=== PATIENT | male | born 1965 | race Caucasian/White ===

== ENCOUNTER 2018-06-16 12:39 | Emergency (ER) | payer MEDICAID, SELFPAY ==
[2018-06-16 12:45] VITALS: BP 137/99; PULSE 69; RESP 16; TEMP 36.8; O2SAT 95
--- NOTE | 2018-06-16 14:10 | ED.GENADUL_ITS ---
Disposition Clinical Impression: Laceration of foot Disposition: HOME Condition: Good Instructions: Laceration (ED), Care For Your Stitches (ED) Additional Instructions: Watch for any signs of infection such as purulent drainage, redness around the surgical site, significant swelling, streaking redness up the foot. If these occur return immediately to the emergency department for evaluation. Otherwise return to the emergency department in 12 days for suture removal. Keep wound clean and dry. Make sure that you take the antibiotics until fully gone. Prescriptions: Cephalexin [Keflex] 500 mg PO Q6H #16 cap Referrals: [facility] Emergency Dept. [Outside] (Return to the emergency department 12 days for suture removal.) Medical Decision Making - Medical Decision Making Patient presenting to the emergency department for complaint of left foot laceration. Patient had this laceration from a chainsaw. Patient has a 4 cm laceration to the medial aspect of the dorsal side of the left foot. Patient gave verbal consent for anesthetization and wound closure. Please see wound note for closure. Wound is a deep wound with possible fascia involvement but no tendon deficit is noted no visible bone. Did encourage patient to have radiological imaging of the foot done due to mechanism of injury and to evaluate for any bone loss and he declined this. Patient is competent and states clear understanding of risks versus benefit of radiological imaging of the foot. Visualization of wound to base in bloodless field does show some contamination with what appears to be sock-like material and potential dirt all visible foreign bodies were removed. Wound was closed with 3 simple interrupted sutures and due to some brisk venous bleeding 1 figure 8 stitch was used. Wound was then covered with bacitracin and sterile gauze. Given contaminated wound patient was placed upon Keflex for 4 days and encouraged to watch for any signs of infection return immediately. Patient's tetanus is past 5 years so patient was given Tdap immunization. After discussion of diagnosis and plan of care with patient patient agreed and stated no further needs, questions, or concerns at this time. History of Present Illness - General Chief complaint: Laceration Stated complaint: LEFT RIGHT FOOT LACERATION Time Seen by Provider: 06/16/18 12:48 Source: patient, RN notes reviewed Mode of arrival: ambulatory Limitations: no limitations - History of Present Illness Initial comments: Patient reports approximately an hour or so prior to arrival he was in the matt using his chainsaw when he struck a knot in the tree and the chainsaw kicked back striking him in the left inner foot. He states he was wearing a work boot and it cut through the work boot then when he evaluated his sock he noticed some blood. Patient denies any other injury or trauma and states full movement sensation and function around the injury just a decent laceration. Patient states he is unsure of his last tetanus. Onset/Timin -: hour(s) Location: left, lower extremity Severity scale (1-10): 1 Quality: aching Improves with: none Worsens with: none Associated Symptoms: denies other symptoms Treatments Prior to Arrival: none - Related Data Cephalexin [Keflex] 500 mg PO Q6H #16 cap 06/16/18 Allergies Allergy/AdvReac Type Severity Reaction Status Date / Time No Known Allergies Allergy Unverified 06/16/18 12:49 Review of Systems Constitutional: no symptoms reported Cardiovascular: denies: syncope Musculoskeletal: as per HPI Skin: as per HPI Neurological: denies: weakness, numbness, paresthesias Comment: All other systems reviewed and negative Past Medical History - Past Medical History Medical history: no medical history Surgical history: no surgical history - Social History Smoking status: current everyday smoker Alcohol use: occasionally Drug use: none Living Situation: lives with family General Exam - General Limitations: no limitations General appearance: alert, in no apparent distress - Head Head exam: Present: atraumatic - Respiratory Respiratory exam: Absent: respiratory distress - Cardiovascular Cardiovascular Exam: Present: regular rate, normal rhythm - Expanded Lower Extremity Exam Left Lower Leg exam: Present: normal inspection Ankle exam: Present: normal inspection Foot/Toe exam: Present: full ROM, laceration (Patient has a 4 cm laceration to the medial aspect of the foot on the dorsal side.). Absent: tenderness, deformity, crepidus Neuro vascular tendon exam: Absent: pulse deficit, motor deficit, sensory deficit, tendon deficit, abnormal 2-point discrimination Gait: observed and normal - Neurological Exam Neurological exam: Present: alert, oriented X3 - Psychiatric Psychiatric exam: Present: normal affect, normal mood - Skin Skin exam: Present: warm, dry Course Vital Signs - 24 hr 06/16/18 12:45 Temperature 36.8 C Pulse 69 Respiratory 16 Rate Blood Pressure 137/99 Pulse Oximetry 95 Procedures - Laceration Repair Consent Obtained: Verbal consent Copious Irrigation performed: Yes Laceration Length (cm): 4 Laceration Depth: Deep Bleeding Type/Amount: Moderate Complexity: Simple Anesthetic: Local, Lidocaine 1%, With Epi Amount of Anesthetic (mls): 6 Material: Proline Suture Size: 3-0 Suture Number: 4 (3 simple interrupted, 1 [id number])
[2018-06-16] MEDS: Cephalexin 500 MG CAP PO (14:26)
[2018-06-16 14:28] VITALS: BP 137/99; PULSE 69; RESP 16; TEMP 36.8; O2SAT 95
--- NOTE | 2018-06-16 14:39 | NUR.NOTE ---
discussed rationale for foot xray and risk for osteomyelitis- pt states that he understands but does not wish to have xray- notified Priyank Maxwell.P. Nursing Note:
== END 2018-06-16 14:28 | disposition home or self-care (01) ==
PROVIDERS: Emergency Provider Physician Assistant; PCP Nurse Practitioner
DX: S91.312A Laceration without foreign body, left foot, initial encounter (principal); W29.3XXA Contact with powered garden and outdoor hand tools and machinery, initial encounter
CPT/HCPCS: 90471; 99284

== ENCOUNTER 2019-08-20 02:16 | Outpatient (CLI) | payer MEDICAID, SELFPAY ==
--- NOTE | 2019-08-20 15:23 | DI.MRI_ITS ---
EXAM: MR LOWER JOINT RT WO CLINICAL HISTORY: ACUTE KNEE PAIN M25.561, POSSIBLE ACL TEAR, NOT ABLE TO BEAR WEIGHT. TECHNIQUE: Multiplanar multisequence MRI was performed. COMPARISON: No exams were available for comparison FINDINGS: There is a moderate-sized joint effusion and small Hernandez's cyst. There is minimal edema in the ant erior cruciate ligament but no evidence of a full-thickness tear. The posterior cruciate ligament an d lateral collateral ligament complex as well as extensor mechanism appear intact. There is mild lisa ma anterior to the patellar tendon with no focal fluid collection. There is fluid around the medial collateral ligament, but no evidence of a focal tear. There is some cartilage thinning and irregular ity over the femoral condyles and tibial plateaus, but no focal cartilage defect. There is no eviden ce of fracture. There is mild spurring from the femoral condyles and tibial plateaus. The menisci a re mildly peripherally displaced, consistent degenerative changes. There are degenerative intrasubst ance signal changes, but no evidence of a focal tear. IMPRESSION: Question of MCL and ACL sprains. No focal tears are seen. Degenerative changes are seen in the meni sci as well as articular cartilage.
== END 2019-08-20 02:36 ==
PROVIDERS: PCP Nurse Practitioner; Visit Provider Nurse Practitioner
DX: M25.561 Pain in right knee (principal); M17.11 Unilateral primary osteoarthritis, right knee; M25.461 Effusion, right knee; M71.21 Synovial cyst of popliteal space [Baker], right knee
CPT/HCPCS: 73721

== ENCOUNTER 2019-12-29 09:47 | Day surgery (SDC) | payer MEDICAID, SELFPAY ==
[2019-12-29] VITALS (8 sets, daily range): BP systolic 123–158; BP diastolic 95–113; PULSE 53–69; RESP 12–18; TEMP 36.4–36.7; O2SAT 94–97
--- NOTE | 2019-12-29 07:33 | W.PM.DSUDISC ---
Discharge Plan Disposition Patient Disposition: HOME Condition: Good Discharge Details Reason For Visit: Right knee arthroscopy Attending Provider: Orestes Portillo Primary Care Provider: Alta Barreto Home Meds and New Rx's Prescriptions: New hydrocodone-acetaminophen 5-325 mg tablet 1 tab PO Q6H PRN (Reason: pain) Qty: 10 RF: 0 ibuprofen 600 mg tablet 600 mg PO TID PRNQty: 30 RF: 0 acetaminophen 500 mg capsule 500 mg PO Q4H PRN (Reason: pain) Qty: 30 RF: 0 Discharge Instructions Stand Alone Forms: [facility] Knee Arthroscopy Referrals: Orestes Portillo MD [ [facility] STAFF PHYSICIAN] - Equipment/Supplies: Partial Weight Bearing Crutches Activity:: Activity as Tolerated Remove Dressings/Wound Care:: 48 hours Shower/Bathe:: 48 hours Diet:: As Tolerated Discharge Orders Discharge Orders: Discharge Order (Routine); Ordered 12/29/19 Ordered By: Tramaine Patel DS: Diagnosis Discharge Diagnosis (1) Internal derangement of right knee: Status: Acute
[2019-12-29] MEDS: Lactated Ringers 1,000 ML 80 ML IV ×2 (10:42→12:45)
[2019-12-29] MEDS: ceFAZolin 2 GM/50 ML BAG IVPB (12:10)
[2019-12-29] MEDS: EPINEPHrine 30 MG/30 ML VIAL (12:44)
[2019-12-29] MEDS: Bupivacaine 0.5% Pres-Free 30 ML VIAL (12:48)
[2019-12-29] MEDS: fentaNYL 100 MCG/2 ML VIAL IVP (13:25)
[2019-12-29] MEDS: Ondansetron 4 MG/2 ML VIAL IVP (14:02)
--- NOTE | 2019-12-30 14:54 | W.PM.OP ---
Date of service: 12/29/19 Time of Service: 12:54 Operative Note Operative Note DATE OF PROCEDURE: 12/29/19 POST-OP DIAGNOSIS: other (Right middle meniscus tear, grade 4 medial chondromalacia, anterior loose body) PROCEDURE: Right knee arthroscopic partial medial meniscectomy and removal of loose body SURGEON: Orestes Portillo ANESTHESIA: GETA ESTIMATED BLOOD LOSS: 0 PATHOLOGY: none sent COMPLICATIONS: None Patient was transported to: PACU Patient's condition: stable Indications: I have seen Jai in clinic for symptoms of a meniscus tear. This was confirmed based on MRI and exam findings. Nonoperative measures were exhausted but disability and pain persisted. I discussed knee arthroscopy with meniscal intervention with the patient. I reviewed the risks of the procedure to include, but not limited to, bleeding, infection, pain, stiffness, damage to nerves or vessels, recurrence, blood clot. Despite these risks, the patient elected to proceed. Findings: A diagnostic arthroscopy was performed with the following findings: Suprapatellar Pouch: No significant inflammation, no loose bodies Medial Compartment: Radial tear at the level of the posterior root with no intact peripheral fibers, more than half of the medial and posterior tibia was grade IV chondromalacia and the femur was mostly grade III chondromalacia with focal areas of grade 4, no loose bodies in the medial compartment Notch: ACL and PCL were intact but there was a loose body lightly attached to the anterior aspect of the notch between the ACL and the medial meniscus anterior root. Lateral Compartment: No meniscal tear, intact meniscal root, no significant chondromalacia or signs of arthritis, no loose bodies Patellofemoral Compartment: Grade I/II chondromalacia of the patella, no apparent patellar maltracking Procedure Description: Jai was greeted in the preoperative holding area where the correct side was identified and marked. The consent was reviewed with the patient and signed. The history and physical was updated. All questions were answered. He was taken back to the operating room. The patient was placed into the supine position on the operating room table. A nonsterile tourniquet was placed high onto the leg but not used. All bony prominences were well padded. Prophylactic antibiotics in the form of cefazolin were administered. The right leg was then prepped with Chloraprep and draped in a standard fashion with stockinette and extremity drape. A timeout to confirm correct identity, side and site, procedure, allergies, anesthesia, and medical concerns was performed. The leg was placed into a pneumatic leg meade, SPIDER2. A standard lateral portal was made at the lateral border of the patella tendon in line with the inferior pole of the patella, soft spot. The skin and deep tissue was incised sharply and the blunt trochar was inserted atraumatically. A diagnostic arthroscopy was performed and the findings are listed above. The suprapatellar pouch had no significant inflammatory change. The patellofemoral articulation showed minimal grade II chondromalacia of the patella as well as good tracking. The lateral gutter had no loose bodies and the medial gutter had no loose bodies. The knee was brought into some valgus stress in extension to open the medial compartment. A medial portal was made, localized by a spinal needle. The portal was created with an #11 blade through skin and capsule under direct visualization avoiding any meniscal injury. A probe was then inserted into the medial compartment. The medial compartment was fully inspected. The chondral surface of the tibia showed a large amount of grade IV chondromalacia, especially medial and posterior. The surface of the femur showed grade III chondromalacia with focal areas of grade 4. The medial meniscus had a radial type tear at the level of the meniscal root, disconnecting the posterior meniscus from the tibial attachment. After evaluation, the meniscus was debrided down to a stable base using a series of biters and arthroscopic karthik. It was probed afterwards to confirm that the tear had been removed and the meniscus was stable. This partial meniscectomy was performed given the large amounts of grade 3 grade IV chondromalacia of the medial compartment. The notch was then inspected which showed an intact ACL and an intact PCL. There was a round loose body approximately 5 mm in diameter which was seen lightly attached to the anterior soft tissues between the ACL origin and the medial meniscus. Using arthroscopic graspers, this was removed. The leg was then brought into a figure of 4 position. The lateral compartment was fully inspected with the arthroscope and a probe. The chondral surface of the lateral femur showed no significant chondromalacia. The chondral surface of the lateral tibia showed no significant chondromalacia. The lateral meniscus had no meniscal tear. The arthroscope was brought back into the suprapatellar pouch and the leg was in full extension. The knee was thoroughly irrigated with the arthroscopic fluid on high flow and pressure. Inflow was stopped and excess fluid was removed. The wounds were closed with 4-0 Nylon. They were dressed with Xeroform, 4x4 gauze, ABD pad, Kerlix and an CASSY wrap. A cryo-cuff was applied. The patient tolerated the procedure well and was returned to the Same Day Surgery area in a stable condition suffering no known complication.
== END 2019-12-29 15:22 | disposition home or self-care (01) ==
LOC: SUR 09:48
PROVIDERS: PCP Nurse Practitioner; Visit Provider Student in an Organized Health Care Education/Training Program
PROC: (CPT 29870; principal; 2019-12-29 12:15)
DX: M23.203 Derangement of unspecified medial meniscus due to old tear or injury, right knee (principal); M22.41 Chondromalacia patellae, right knee; M94.261 Chondromalacia, right knee
CPT/HCPCS: 29881; J0131; J0690; J1100; J1200; J1885; J2001; J2250; J2405; J3010

== ENCOUNTER 2020-09-20 15:05 | Outpatient (CLI) | payer MEDICAID, SELFPAY ==
--- NOTE | 2020-09-20 13:45 | DI.RAD_ITS ---
EXAM: XR STANDING ALIGNMENT and XR knee RT 1 V CLINICAL HISTORY: R TKA planning. TECHNIQUE: 2D digital imaging was performed. COMPARISON: None. FINDINGS: Moderately severe degenerative changes are seen in the right knee characterized by joint space narrow ing and periarticular spurring. The findings are most marked in the medial femoral tibial and patell ofemoral joints. Mild degenerative changes are seen in the left knee with periarticular spurring in the lateral femoral tibial joint space. The hips are well maintained. The ankles are well maintaine d. There is a nonunited fracture of the distal left fibula. The right lower extremity measures 85.2 cm. The left lower extremity measures 86.7 cm. IMPRESSION: Moderately severe degenerative changes in the right knee as described. DATA REPOSITORY: RADIATION DOSE DELIVERED:
== END 2020-09-20 15:25 ==
PROVIDERS: PCP Nurse Practitioner; Referring Provider Nurse Practitioner; Visit Provider Physician Assistant
DX: M17.11 Unilateral primary osteoarthritis, right knee (principal)
CPT/HCPCS: 73560; 77073

== ENCOUNTER 2020-09-29 02:49 | Outpatient (CLI) | payer MEDICAID, SELFPAY ==
[2020-09-29 11:27] LABS: HCT 45.4 % (40.0-50.0); HGB 15.7 g/dL (13.5-17.5); MCH 30.3 pg (27.0-33.0); MCHC 34.6 % (32.0-36.0); MCV 87.6 fL (80-95); MPV 8.9 fL (8.0-11.0); Platelet Count 258 10^3/uL (130-400); RBC 5.18 10^6/uL (4.36-5.78); RDW 11.8 % (11.8-14.1); WBC 6.73 10^3/uL (4.4-10.8)
[2020-09-29 11:52] LABS: BUN 14 mg/dL (7-18); CREATININE 0.88 mg/dL (0.70-1.30); Calcium 9.4 mg/dL (8.5-10.1); Chloride 104 mmol/L (98-107); Glucose 96 mg/dL (74-106); Potassium 4.6 mmol/L (3.5-5.1); Sodium 139 mmol/L (136-145)
[2020-09-30 11:56] LABS: SARS-CoV-2 RNA Not Detected (NotDetected); SARS-CoV-2 RNA Source Nasal/Nares
== END 2020-09-29 03:09 ==
PROVIDERS: PCP Nurse Practitioner; Visit Provider Student in an Organized Health Care Education/Training Program
DX: Z01.818 Encounter for other preprocedural examination (principal); M23.203 Derangement of unspecified medial meniscus due to old tear or injury, right knee
CPT/HCPCS: 36415; 80048; 85027; U0003

== ENCOUNTER 2020-10-03 07:15 | Day surgery (SDC) | payer MEDICAID, SELFPAY ==
[2020-10-03] VITALS (7 sets, daily range): BP systolic 106–143; BP diastolic 77–91; PULSE 47–65; RESP 15–20; TEMP 36–36.5; O2SAT 94–98
[2020-10-03] MEDS: Acetaminophen 500 MG TAB 1000 MG PO (07:52)
[2020-10-03] MEDS: Gabapentin 300 MG CAP PO (07:53)
[2020-10-03] MEDS: Celecoxib 200 MG CAP 400 MG PO (07:53)
[2020-10-03] MEDS: Lactated Ringers 1,000 ML 80 ML IV ×2 (08:00→09:49)
[2020-10-03] MEDS: ceFAZolin 2 GM/50 ML BAG IVPB (09:12)
[2020-10-03] MEDS: Normal Saline 20 ML VIAL (09:34)
[2020-10-03] MEDS: Ketorolac 30 MG/ML VIAL (09:34)
[2020-10-03] MEDS: Bupivacaine 0.25% Pres-Free 30 ML VIAL (09:34)
--- NOTE | 2020-10-03 10:34 | W.PM.DS.N ---
Date of service: 10/03/20 Time of Service: 12:42 DS: Diagnosis Discharge Diagnosis (1) Primary osteoarthritis of right knee: Status: Acute Discharge Plan Disposition Patient Disposition: HOME Condition: Good Discharge Details Reason For Visit: Right Knee DJD Admit Date/Time: 10/03/20 07:15 Admit Provider: Orestes Portillo Attending Provider: Orestes Portillo Primary Care Provider: Alta Barreto Hospital Course Hospital Course: Patient was admitted to the day surgery unit following the procedure. The surgery was tolerated well without any notable medical, surgical, or anesthetic complications. Mobilization began postoperatively. He was voiding spontaneously. Vitals were stable. Physical therapy worked with the patient and was cleared for discharge home. No acute medical issues. Pain was controlled on oral regimen. Home Meds and New Rx's Prescriptions: New aspirin 81 mg tablet,delayed release (DR/EC) 81 mg PO BID Qty: 60 RF: 0 acetaminophen 500 mg tablet 1,000 mg PO Q8H PRN (Reason: pain) Qty: 90 RF: 3 pantoprazole 40 mg tablet,delayed release (DR/EC) 40 mg PO DAILY Qty: 30 RF: 0 docusate sodium [Colace] 100 mg capsule 100 mg PO BID PRNQty: 10 RF: 0 gabapentin 300 mg capsule 300 mg PO QHS Qty: 7 RF: 0 ibuprofen 600 mg tablet 600 mg PO QID Qty: 90 RF: 3 oxycodone 5 mg tablet 5 mg PO Q4H Qty: 18 RF: 0 Discontinued ibuprofen 600 mg tablet 600 mg PO TID PRN (Reason: pain) Qty: 90 RF: 3 acetaminophen 500 mg capsule 500 mg PO Q4H PRN (Reason: pain) Qty: 30 RF: 0 Discharge Instructions Additional Instructions: Total Knee Discharge Instructions Activity: The most important activity is to walk. You should try to take short walks a few times a day. It is important that when resting you work on keeping the knee straight. Avoid putting a pillow behind the knee as this will encourage flexion. Work on range of motion exercises as provided by Physical Therapy. - Start outpatient physical therapy within 2 weeks. - You should wear the DEX hose on both legs for 2 weeks. Dressing: Keep the surgical dressing in place for at least one week. After the first week it may be removed and replace with light gauze and tape or nothing. It may get wet after 3 days but avoid soaking the dressing. If it gets wet, just lightly pat dry. Medications: - You should take Tylenol and anti-inflammatory Ibuprofen as your primary pain control medications. If the Celebrex is too expensive or not covered, please call the office for another alternative (Advil/Ibuprofen or Naproxen/Aleve) - You have been prescribed a stronger pain medication Oxycodone for breakthrough pain, take as needed as prescribed. - You have also been prescribed a stomach acid reduction agent Pantoprozole to help reduce stomach acid and reflux. - You have Gabapentin prescribed for nighttime pain and nerve pain. - You will be taking Aspirin 81mg twice a day for DVT prevention unless instructed otherwise. - If you have constipation you should take Colace or Miralax (both [id number]). It takes most people 3-4 days to have a bowel movement. Follow-up: 2 weeks If you have any acute concerns or questions, please do not hesitate to contact the office at [phone]. You may contact Dr. Portillo with any questions after hours through the hospital at [phone] or on his cell phone at [phone]. Referrals: Orestes Portillo MD [ [facility] STAFF PHYSICIAN] - Activity:: Activity as Tolerated Equipment/Supplies:: Crutches Diet:: As Tolerated Discharge Orders Discharge Orders: Discharge Order (Routine); Ordered 10/03/20 Ordered By: Orestes Portillo DS: Summary Status at Discharge Functional status at discharge: uses cane/walker Overall status at discharge: patient is progressing back to baseline Mental Status: mental status grossly normal Speech and Movement: speech and movement normal Mood: congruent mood Affect: normal affect Exam Psych Mental Status: mental status grossly normal Speech and Movement: speech and movement normal Mood: congruent mood Affect: normal affect DS: Data Vitals/I&O Vitals and I&O: Vital Signs Temperature 36.5 C 10/03/20 07:25 Pulse 53 L 10/03/20 07:25 Pulse Rhythm Regular 10/03/20 07:25 Respiratory Rate 18 10/03/20 07:25 Respiratory Depth Normal 10/03/20 07:25 Blood Pressure 124/80 10/03/20 07:25 Pulse Oximetry 94 10/03/20 07:25 Oxygen Delivery Method Room Air 10/03/20 07:25 Oxygen Flow Rate 0 10/03/20 07:25 Pain Level 5 10/03/20 07:25 Intake & Output 10/02/20 10/02/20 10/03/20 11:59 23:59 11:59 Intake Total 1110 / 1110 Balance 1110 / 1110 Weight 77.9 kg Intake: IV 1110 / 1110 PFS Medical History Tear of medial meniscus of right knee Surgical History Colonoscopy - [facility] (02/02/18) Internal derangement of right knee S/P Right knee arthroscopy: 12/29/2019 Social History Smoking/Tobacco Use Status: Former Tobacco Use Tobacco: How many years used: 46 Smoking risk assessment performed?: Yes Alcohol Intake: current Alcohol Intake frequency: 0-2 drinks per day Alcohol type: beer and hard liquor Drug use: Rarely Substance use type: marijuana Details: Pt states he quit chew 10/21, started when he was 7 years old!! Pt states he currently uses ZYN (natural nicotine) Current gender identity: male Do you feel safe at home: Yes Additional Social history: lives alone
--- NOTE | 2020-10-03 12:47 | W.PM.OP ---
Date of service: 10/03/20 Time of Service: 12:47 Operative Note Operative Note DATE OF PROCEDURE: 10/03/20 PRE-OP DIAGNOSIS: Right Knee Osteoarthritis POST-OP DIAGNOSIS: same PROCEDURE: Right Total Knee Replacement SURGEON: Orestes Portillo VICTIMS ADVOCATE CLERK/SPECIALIST: Justina Canales ANESTHESIA: regional and spinal ESTIMATED BLOOD LOSS: 200 PATHOLOGY: none sent TOURNIQUET TIME: 0 COMPLICATIONS: None Patient was transported to: PACU Patient's condition: stable Implants: 1. Depuy Attune Cementless Cruciate Retaining Femoral Component, Size 7 2. Depuy Attune Cementless Rotating Platform Tibial Component, Size 6 3. Depuy Attune 7x6mm CR/RP Poly 4. Depuy Attune Patellar Component, Size 35 Indications: I have seen Jai in clinic for symptoms of knee arthritis, confirmed with radiographic findings. He has exhausted nonoperative methods and was having significant limitations in daily function and desired better function and less pain. I discussed the technical details of a knee replacement. I explained the risks of the procedure to include, but not limited to, bleeding, infection, pain, stiffness, fracture, damage to nerves and vessels, damage to muscles and tendons, loosening, need for repeat procedure, blood clot and cardiopulmonary demise. Despite these risks, Jai elected to proceed. Findings: There was significant signs of arthritis throughout the knee. Procedure Description: Jai was greeted in the preoperative holding area where the correct side was identified and marked. The consent was reviewed with the patient and signed. The history and physical was updated. All questions were answered. Preoperative medications were administered: Acetaminophen 1000mg, Celebrex 400mg, and Gabapentin 300mg. An adductor canal block was then administered by the anesthesia team in the PACU. Jai was taken back to the operating room. A spinal anesthestic was then administered. The patient was placed into the supine position on the operating room table. A nonsterile tourniquet was placed high onto the leg but only used for cementing. Posts were placed for positioning during the procedure. All bony prominences were well padded. Prophylactic antibiotics in the form of Cefazolin were administered. 1g of Tranxemic Acid was given intravenously within 30 minutes of incision. The right leg was then prepped with Chloraprep and draped in a standard fashion with impervious stockinette. A second prep with Chloraprep was performed prior to application of Iodine impregnated skin protection. A timeout to confirm correct identity, side and site, procedure, allergies, anesthesia, and medical concerns was performed. With the knee in some flexion, a midline incision was made overlying the knee. Full thickness skin flaps were raised once the extensor mechanism was encountered. These were raised medially and laterally. Any bleeding was controlled with electrocautery. Once the extensor mechanism was fully exposed, a medial parapatellar arthrotomy was performed in a flexed position. All bleeding from the arthrotomy and the geniculate arteries was coagulated. A medial subperiosteal peel was performed with electrocautery to the midcoronal plane. Due to the significant varus deformity the entire medial tibial plateau was exposed. The fat pad was removed while keeping the patellar tendon protected. The anterior distal femur synovium was removed for later visualization. The ACL and PCL were resected and the anterior horn of the lateral meniscus was transected. The knee was then flexed with the patella everted. Large osteophytes from the tibia were removed. Large osteophytes from the femur were removed. Using a step drill, and based on preoperative templating, the femoral canal was entered. This was done with a step drill without any difficulty. The intramedullary distal femoral cut guide was inserted, set to a 5 degree valgus cut and 9mm cut thickness. The distal femoral cut guide was then held in position and pinned. With the soft tissues protected, the distal cut was performed. This was passed over a few times to ensure a planar cut. I then turned attention to the tibia. The extramedullary guide was placed onto the leg. The distal aspect was slid medial to adjust for position of center of ankle and stay in line with shaft of the tibia. Approximately 5 degrees of posterior slope was kept in the proximal cutting guide. The center of the guide was aligned with the PCL. The stylus was used to assess cut thickness. The medial side, most involved side, was set for a 4mm cut. This was then held in position and pinned into place with 2 additional pins and a cross pin for stability. The medial and lateral collateral ligaments were protected and the cut was performed. With this completed, it was assessed and noted to be of appropriate dimensions. The guide was removed. A spacer block was inserted and the knee was brought into extension. The 6mm spacer block provided full extension, without hyperextension and with stability of both the medial and lateral collateral ligaments was assessed. The pins from the femur and the tibia were then removed. The distal femur was then sized. The anterior stylus was placed onto the lateral ridge of the anterior femur. This indicated a size 7 femur, which matched the A-P dimension but was slightly wide for the distal femur. The external rotation of the guide was adjusted to 3 degrees to match the epicondylar axis, perpendicular to [place]?s line. The 4-in-1 cutting guide was the placed. The posterior medial femur cut was evaluated and appeared of good thickness. The spacer block was inserted underneath the cutting guide and stability was confirmed in 90 degrees of flexion. An james wing was used to confirm appropriate position of the anterior cut to avoid notching. This cutting guide was ensured to be flush on the cut surface and then pinned into place with headed pins. While protecting the soft tissues, quad tendon, and collateral ligaments, the anterior and posterior cuts were performed with a saw. The central two pins were removed and the posterior and anterior chamfers were cut next. The notch-cutting guide was placed. This was pinned to lateralize the femoral component as much as possible while keeping it flush on the cut surface. This was then pinned into position. A reciprocating saw was used to make the notch cut. A rasp smoothed the cut surfaces. The medial and lateral menisci were removed. A trial femoral component was then inserted, impacted down to the cut surfaces, and the lug holes were drilled. A provisional trial tibial component was placed and the knee was brought through range of motion. There was noted to be excellent extension and flexion. There was no significant instability. The polyethylene was trialed until there was good flexion and extension with excellent stability to the medial and lateral collaterals. The patella was tracking without thumbs. A size 6mm polyethylene component provided the best range of motion and stability with less than 2mm gapping with medial and lateral stress and full extension without significant hyperextension. The tibial cut surface was fully exposed. The tibia was then sized as a 6. The tibia had been previously marked during trialing to correspond to the center of the tibial component to help with rotation. The trial was aligned to this beni, approximately rotated to the medial 1/3rd of the tibial tubercle. The trial was pinned into place. The tibia was prepared with a reamer and a keel punch and lug holes. The knee was then brought into extension and the patella was measured as 24mm. Using the patellar clamp and cut guide, this was resected to a flat surface with at least 13mm of thickness remaining. The size 35 patella fit the best. This was oriented and then clamped into position. The lugs were drilled. The trial components were removed. The final components were opened on the back table. The periosteal and capsular tissues, especially posteriorly, around the knee were then systematically injected with a periarticular cocktail consisting of 50cc 0.25% Marcaine, 30mg Ketorolac, 20cc of Exparal and 50cc of injectable saline. The knee was thoroughly irrigated with a pulse lavage and dried. Irrisept was also used to irrigate the tissues. On the back table, with the implants opened, the cement was mixed. One batche of high viscosity cement were prepared with vacuum assistance. After the cement was ready a small amount was placed on the cut surface of the patella and the patellar button was clamped into position and held. During this process attention was turned to the gutters of the knee and for all interfaces for any excess cement. While the cement was hardening, the cementless knee components were placed. Starting with the tibial component, the tibia was subluxed anteriorly and the lug holes of the component were lined up. The tibia was then impacted with an impactor and mallet until the tibial component was in contact with the tibia. The final polyethylene component was inserted. Then, the femoral component was inserted. The lug holes were aligned and the component was impacted into position. The knee was irrigated with Irrisept chlorhexadine solution. This was allowed to sit in the knee for 3 minutes. After the cement had finally cured, approximately 15min, the clamp was removed from the patella and the knee was taken through range of motion. The patella was tracking with a no-thumbs technique. The capsule was then reapproximated with a No. 1 Vicryl at multiple locations. The capsule was finally closed with a No. 2 Stratafix, barbed suture. The tourniquet was then released and the arthrotomy appeared watertight without significant bleeding. The second dosing of 1g TXA was started. Deep tissues were then reapproximated with 0 Vicryl and 2-0 Vicryl. The skin was closed with a running 3-0 Monocryl in a subcuticular fashion. This was reinforced with skin glue. A Mepilex silver dressing was applied along with a [id number] CASSY wrap. A CryoCuff was applied. Jai was transferred to the hospital bed without difficulty an suffering no apparent complication. Jai has a good prognosis. Physical therapy will start today and without restrictions, weight-bearing as tolerated. Aspirin 81mg BID will be used for DVT prophylaxis.
--- NOTE | 2020-10-03 13:35 | IN_ITS ---
Date of service: 10/03/20 Time of Service: 13:35 PT Notes Visit Reasons: Right Knee DJD Physical Therapy Inpatient Initial Evaluation Date: 10/03/2020 Referring Doctor: Orestes Portillo MD PT Orders: PT CONSULT: Status post Ortho surgery. Status post right TKA. Precautions: Fall. Standard. WBAT on R LE. Patient Profile/Admitting Diagnosis: Jai is a 54-year-old male with primary unilateral osteoarthritis of the right knee and is status post right total knee arthroplasty operative day 0. PMHX: Medical History Tear of medial meniscus of right knee Surgical History Colonoscopy - MAC (02/02/18) Internal derangement of right knee S/P Right knee arthroscopy: 12/29/2019 Social History/Home Situation: Lives alone but will have needed support post- operstively. Has 2 steps to enter at home. 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 Independent with all aspects of ADLs prior to surgery. Equipment Owned/DME: Bilateral axillary crutches. Subjective: Cooperative and very motivated to go home today. Reports 1/10 pain in the R knee at rest. Denies headache, chest pain, lightheadedness throughout. Objective: General Observation: Supine in stretcher. IV in R UE. CASSY wraps to R knee. Cryocuff to R knee. Nurses Gaby and Ilda present during evaluation for safety a nd to assist as needed. Mental Status: Alert and oriented x 4 Pain: 1/10 in the right knee Vital Signs: WNL as closely monitored by Nurse Aydee and Ilda before, during, and after PT consult ROM: Right Upper Extremity: Shoulder Flexion WFL. Shoulder abduction WFL. Elbow flexion WFL. Wrist flexion WFL. Opening and closing of hand WFL. Left Upper Extremity: Shoulder Flexion WFL. Shoulder abduction WFL. Elbow flexion WFL. Wrist flexion WFL. Opening and closing of hand WFL. Right Lower Extremity: Hip flexion WFL. Hip abduction WFL. Knee flexion 20 to 80 degrees in standing. Knee extension -20 degrees. Ankle dorsiflexion WFL. Ankle plantarflexion WFL. Left Lower Extremity: Hip flexion WFL. Hip abduction WFL. Knee flexion WFL. Ankle dorsiflexion WFL. Ankle plantarflexion WFL. Strength: Right Upper Extremity: Shoulder flexors 5/5. Shoulder abductors 5/5. Elbow flexors 5/5. Elbow extensors 5/5. Behavioral Assistant strong. Left Upper Extremity: Shoulder flexors 5/5. Shoulder abductors 5/5. Elbow flex ors 5/5. Elbow extensors 5/5. Behavioral Assistant strong. Right Lower Extremity: Hip flexors 4/5. Hip abductors 4/5. Knee flexors 3-/5. Knee extensors 3-/5. Ankle dorsiflexors 5/5. Ankle plantarflexors 5/5. Left Lower Extremity:Hip flexors 5/5. Hip abductors 5/5. Knee flexors 5/5. Knee extensors 5/5. Ankle dorsiflexors 5/5. Ankle plantarflexors 5/5. Sensation: Intact as to pain and pressure on bilateral lower extremities. Bed Mobility/Transfers: Rolling independent Supine to sit independent Sit to supine independent Sit to stand supervision Stand to sit supervision Bed to chair supervision Chair to bed supervision Gait: Training provided to navigate 100 feet + 80 feet on level surface using bilateral axillary crutches with standby assist of PT and Nurse Griffin. Three- point gait pattern. Marian decreased. Step through. THERA EX: Instructed on seated level active range of motion exercises consisting of LAQs, seated hip flexion, and ankle DF/PF to bed done 10-15 x at least BID. Balance: Static Sitting: Normal Dynamic Sitting: Normal Static Standing: Good Dynamic Standing: Fair Special Tests: Mobility Limitations Standardized Measure [facility] AM-PAC 6 clicks Basic Mobility Inpatient Short Form: Raw Score: 23 CMS Score: 11% deficit Informed Consent/Education: Patient instructed in purpose of PT consult and plan of care. Assessment: Jai requires the use of bilateral axillary crutches to maximize independence and his fall risk at home. He will have good support to safely manage at home. He will benfit from outpatient PT services in order to fac ilitate return to premorbid independent level and to vocational activities. Patient presents with clinical signs and symptoms consistent with current/admitting diagnoses that have resulted to mobility limitations, gait instability, generalized weakness, and impairment of motor control as demonstrated by the following impairment level findings: 1. Decreased strength to R knee major muscle groups 2. Impaired standing balance 3. Impaired activity tolerance 4. Limitation of joint range of motion in right knee Impairments are contributing to the following functional limitations: 1. Inability to safely ambulate without assistive device 2. Increase completion time for mobility ADL performance 3. Increased fall risk Patient is assessed as a [id number] moderate complexity based on the following: History: 55-year-old male with impairment level findings, functional limitations, and past medical history as indicated above Examination: Demonstrable impairment in strength, balance, and mobility level with underlying impairments and functional limitations as documented above Presentation: Evolving Decision Makin moderate complexity Goals: N/A. PT consult and 1 treatment session only for education and training on functional mobility performance and HEP. Plan of Care/Treatment Plan: N/A. PT consult and 1 treatment session only for education and training on functional mobility performance and HEP. DISCHARGE RECOMMENDATIONS: Home when medically cleared by orthopedic surgeon. No equipment needs at this time. Outpatient PT services in 2 weeks to facilitate return to premorbid independent level and to vocational activities. TREATMENT CODE/TIME: 37284 x 20 minutes, 78290 x 10 minutes beginning at 13:35 PM. Thank you for the opportunity to participate in the care of this patient. Alvina Cavazos PT, DPT, CLT [facility] [place], [place]
== END 2020-10-03 14:16 | disposition home or self-care (01) ==
LOC: PDS 12:43 → DSU 10-06 12:24
PROVIDERS: PCP Nurse Practitioner; Visit Provider Student in an Organized Health Care Education/Training Program
PROC: (CPT 27447; principal; 2020-10-03 10:00)
DX: M17.11 Unilateral primary osteoarthritis, right knee (principal)
CPT/HCPCS: 27447; C1776; 76942; 97162; 97530; NC; J0690; J1885; J2001; J2250

== ENCOUNTER 2020-10-19 11:16 | Outpatient (CLI) | payer MEDICAID, SELFPAY ==
--- NOTE | 2020-10-19 11:00 | DI.RAD_ITS ---
EXAM: XR STANDING ALIGNMENT CLINICAL HISTORY: 1ST POST OP R TKA TECHNIQUE: COMPARISON: CR XR STANDING ALIGNMENT from 09/20/2020 CR XR KNEE RT 1V from 10/19/2020 FINDINGS: An AP views of both lower extremities and lateral view of the right knee are interpreted in conjuncti on. There are mild degenerative changes of both hips. There is a total knee joint replacement posit ion on the right. The components appear well seated. There are moderate degenerative changes of the left knee predominantly involving medial tibiofemoral joint. A probably incompletely healed fractur e of the left distal fibular diaphysis is again noted, please correlate clinically. IMPRESSION: RADIATION DOSE DELIVERED: Total DLP
== END 2020-10-19 11:36 ==
PROVIDERS: PCP Nurse Practitioner; Referring Provider Nurse Practitioner; Visit Provider Student in an Organized Health Care Education/Training Program
DX: Z96.651 Presence of right artificial knee joint (principal)
CPT/HCPCS: 73560; 77073

== ENCOUNTER 2021-10-04 09:08 | Outpatient (CLI) | payer MEDICAID, SELFPAY ==
--- NOTE | 2021-10-04 08:30 | DI.RAD_ITS ---
Exam(s) XR KNEE RT 2V AP,LAT EXAM: XR KNEE RT 2V AP,LAT CLINICAL HISTORY: annual f/u R TKA. TECHNIQUE: 2D digital imaging was performed. COMPARISON: CR XR KNEE RT 1V from 10/19/2020 FINDINGS: There is continued stable appearance of the components of the prosthesis. No fracture or loosening e vident. IMPRESSION: Stable appearance. DATA REPOSITORY: RADIATION DOSE DELIVERED:
== END 2021-10-04 09:09 | disposition home or self-care (01) ==
LOC: DIORS 09:09
PROVIDERS: PCP Nurse Practitioner; Referring Provider Nurse Practitioner; Visit Provider Student in an Organized Health Care Education/Training Program
DX: Z96.651 Presence of right artificial knee joint (principal)
CPT/HCPCS: 73560

== ENCOUNTER 2021-10-10 08:41 | Outpatient (REF) | payer MEDICAID, SELFPAY ==
[2021-10-10 14:26] LABS: ALT 47 U/L (16-63); AST 16 U/L (15-37); Albumin 3.9 g/dL (3.4-5.0); Alkaline Phosphatase 55 U/L (46-116); Anion Gap 8.4 mmol/L (3-11); BUN 18 mg/dL (7-18); Bilirubin, Total 1.3 mg/dL (0.2-1.0); CO2 26.6 mmol/L (21.0-32.0); CREATININE 0.9 mg/dL (0.70-1.30); Calcium 9.1 mg/dL (8.5-10.1); Chloride 104 mmol/L (98-107); Glucose 88 mg/dL (74-106); Potassium 4.1 mmol/L (3.5-5.1); Sodium 139 mmol/L (136-145); Total Protein 7.1 g/dL (6.4-8.2)
== END 2021-10-10 08:42 | disposition home or self-care (01) ==
LOC: NCHCN 08:41
PROVIDERS: PCP Nurse Practitioner; Visit Provider Nurse Practitioner
DX: R03.0 Elevated blood-pressure reading, without diagnosis of hypertension (principal)
CPT/HCPCS: 80053

== ENCOUNTER 2021-12-17 01:21 | Outpatient (CLI) | payer MEDICAID, SELFPAY ==
[2021-12-17 21:09] LABS: COVID-19 PCR Negative (Negative)
[2021-12-17 21:12] LABS: Source Nasal/Nares
== END 2021-12-17 01:22 | disposition home or self-care (01) ==
LOC: LBO 01:21
PROVIDERS: PCP Nurse Practitioner; Visit Provider Student in an Organized Health Care Education/Training Program
DX: Z20.822 Contact with and (suspected) exposure to COVID-19 (principal); Z01.818 Encounter for other preprocedural examination
CPT/HCPCS: 87635

== ENCOUNTER 2021-12-19 08:44 | Day surgery (SDC) | payer MEDICAID, SELFPAY ==
[2021-12-19] VITALS (8 sets, daily range): BP systolic 107–140; BP diastolic 74–91; PULSE 53–66; RESP 15–21; TEMP 35.9–36.6; O2SAT 95–99; BMI 29.5
--- NOTE | 2021-12-19 06:41 | W.PM.DSUDISC ---
Discharge Plan Disposition Patient Disposition: HOME Condition: Good Discharge Details Reason For Visit: Right Knee Athroscope Attending Provider: Orestes Portillo Primary Care Provider: Alta Barreto Home Meds and New Rx's Prescriptions: New hydrocodone-acetaminophen 5-325 mg tablet 1 tab PO Q6H PRNQty: 5 0RF Continued ibuprofen 600 mg tablet 600 mg PO QID 0RF Label Comments: TAKE ONE TABLET BY MOUTH FOUR TIMES A DAY acetaminophen 500 mg tablet 1,000 mg PO Q8H PRN (Reason: pain) Qty: 90 3RF Discharge Instructions Stand Alone Forms: [facility] K[facility] Arthroscopy Referrals: Orestes Portillo MD [ [facility] STAFF PHYSICIAN] - Equipment/Supplies: Partial Weight Bearing Crutches Activity:: Activity as Tolerated Remove Dressings/Wound Care:: 72 hours Shower/Bathe:: 72 hours Diet:: As Tolerated Discharge Orders Discharge Orders: Discharge Order (Routine); Ordered 12/19/21 Ordered By: Justina Canales DS: Diagnosis Discharge Diagnosis (1) Arthrofibrosis of total knee arthroplasty: Status: Acute (2) History of total right knee replacement: Status: Acute
--- NOTE | 2021-12-19 08:09 | ANES.PREOP_ITS ---
General Info Date of Service Date Performed: 12/19/21 Height: 5 ft 4 in Weight: 78.188 kg Body Mass Index (BMI): 29.5 Surgical Procedure: Operation Date: 12/19/21 11:25 Proposed Procedure Side Surgeon p Knee Arthroscopy Synovectomy and Manipulation Right Orestes Portillo MD Meds Allergies and Home Medications Allergies Allergy/AdvReac Type Severity Reaction Status Date / Time No Known Allergies Allergy Verified 12/19/21 08:51 Home Medication Medication Instructions Recorded acetaminophen 500 mg tablet 1,000 mg PO Q8H PRN #90 tab 10/03/20 ibuprofen 600 mg tablet 600 mg PO QID 12/18/21 hydrocodone 5 mg-acetaminophen 325 1 tab PO Q6H PRN #5 tab 12/19/21 mg tablet Current Visit Medications: Current Medications Generic Name Dose Route Start Last Admin Trade Name Freq PRN Reason Stop Dose Admin Acetaminophen 1,000 mg 12/19/21 06:00 Acetaminophen 500 Mg Tab PO 12/19/21 16:00 PREOP [facility] Acetaminophen 650 mg 12/19/21 06:39 Acetaminophen 325 Mg Tab PO Q4H PRN PRN Celecoxib 400 mg 12/19/21 06:00 Celecoxib 200 Mg Cap PO 12/19/21 16:00 PREOP JOSE Gabapentin 300 mg 12/19/21 06:00 Gabapentin 300 Mg Cap PO 12/19/21 16:00 PREOP JOSE Ringer's Solution 1,000 mls @ 80 mls/hr 12/19/21 06:00 IV 12/31/21 23:59 INFUSION JOSE Cefazolin Sodium/Dextrose 2 gm in 50 mls @ 100 mls/hr 12/19/21 06:00 Ancef Duplex IVPB 12/19/21 23:59 PREOP JOSE Ondansetron HCl 4 mg/ Sodium 52 mls @ 200 mls/hr 12/19/21 06:39 Chloride IVPB Q6H PRN PRN IV Miscellaneous Supplies 1 each 12/19/21 06:00 Iv Access IV 12/31/21 23:59 DIRECTED JOSE Oxycodone HCl 5 mg 12/19/21 06:39 Oxycodone 5 Mg Tab PO Q3H PRN PRN Pain Sodium Chloride 0 ml 12/19/21 06:00 Normal Saline Flush 10 Ml Syr IV 12/31/21 23:59 PRN PRN Sodium Chloride 0 ml 12/19/21 06:00 Normal Saline 10 Ml Vial IJ 12/31/21 23:59 DIRECTED PRN Sterile Water 0 ml 12/19/21 06:00 Water,Injection,Sterile 10 Ml Vial IJ 12/31/21 23:59 DIRECTED PRN PFSH Active Problems Active Problems: Problem Status Onset Code Arthrofibrosis of total knee arthroplasty T84.82XA History of total right knee replacement 10/03/20 Z96.651 Right rotator cuff tendinitis M75.81 Medical History Medical History (Updated 12/19/21 @ 08:54 by Helio Perea) History of claustrophobia Tear of medial meniscus of right knee s/p right TKA Surgical History Surgical History Colonoscopy - MAC (02/02/18) Internal derangement of right knee S/P Right knee arthroscopy: 12/29/2019 s/p right TKA: 10/03/20 Tobacco Smoking/Tobacco Use Status: Former Tobacco Use Alcohol Alcohol Intake: current Alcohol intake frequency: 0-2 drinks per day Alcohol type: beer and hard liquor Substance Use Substance use: Never Substance use type: does not use Details: Pt states he quit chew 10/21. Pt states he currently uses ZYN (natural nicotine) Vital Signs and Lab Results Lab Results Blood Type / Crossmatch: No Data to Display Complete Blood Count: No Data to Display Complete Metabolic Panel: No Data to Display Liver Function Panel: No Data to Display Coagulation Panel: No Data to Display Cardiac Panel: No Data to Display Arterial Blood Gas: No Data to Display Venous Blood Gas: No Data to Display Pancreas Panel: No Data to Display Thyroid Panel: No Data to Display Infectious Disease: Coronavirus (COVID-19)(PCR) Negative (Negative) 12/17/21 10:09 12/17/21 Coronavirus 2019 Source Nasal/Nares 12/17/21 10:09 12/17/21 Blood Cultures: No Data to Display Toxicology Panel: No Data to Display Anesthesia Assessment and Plan Anesthesia History Personal History: No History of Anesthesia Complications Family History: No Family History of Anesthesia Complications Exercise Tolerance Exercise Tolerance: Metabolic Equivalents>4 Cardiac & Pulmonary Exam Cardiac Exam: Normal S1/S2 Heart Sounds Pulmonary Exam: Clear Bilateral Breath Sounds Implantable Cardiac Device Does patient have a Pacemaker or an ICD?: No Airway Exam Known Difficult Airway: No Mallampati Class: 2 Mouth Opening: Normal (> 3cm) Thyromental Distance: Greater than 3 cm Neck Range of Motion: Full ROM Neck Circumference: Normal Teeth Condition: Normal Dentition and Loose or Chipped (chipped fronts. ) ASA Classification ASA Score: ASA 2 Emergency Case?: No NPO Status NPO Status: NPO Clears >2 hours, Solids >8 hours Anesthesia Plan Resuscitation Status: Full Code Anesthesia Technique: General Anesthesia Airway Planned: LMA Monitors Used: Standard Monitors Preoperative Comments:: 56 yo male for knee arthroscopy. Sig PMHx: denies. occ ETOH, nicotine. Previous Anes: LMA 5, easy mask.
[2021-12-19] MEDS: Gabapentin 300 MG CAP PO (09:20)
[2021-12-19] MEDS: Acetaminophen 500 MG TAB 1000 MG PO (09:20)
[2021-12-19] MEDS: Celecoxib 200 MG CAP 400 MG PO (09:20)
[2021-12-19] MEDS: Lactated Ringers 1,000 ML 80 ML IV (09:21)
--- NOTE | 2021-12-19 10:23 | W.PREOPHP ---
Assessment and Plan Assessment and plan (1) Arthrofibrosis of total knee arthroplasty: Status: Acute Assessment and plan: Jai is a 56-year-old status post right knee replacement. He has arthrofibrosis of the right knee from an injury. Discussed treatments with him. He elects to proceed with arthroscopic synovectomy with manipulation. I reviewed the risk of the procedure to include bleeding, infection, pain, stiffness, damage to nerves and vessels, recurrence or incomplete resolution of symptoms, blood clot. Despite these risks, he elects to proceed. History of Present Illness Narrative: Jai is 86-year-old who is status post right knee replacement. He was doing excellently until he still threw a sania. He had a hyperflexion injury to his right knee. Had immediate bruising and pain. He was able to improve with his ambulation but now has restricted motion. He was able to get 120 to 25? without problem but now struggles past 90?. I saw him in the office and given the crepitus and restricted range of motion offered an arthroscopic synovectomy with manipulation. He has had no change in his symptoms. He feels is getting worse. He denies chest pain or shortness of breath. No COVID-19 contacts or sickness. Review of Systems All systems reviewed & are unremarkable except as noted in HPI and below PFSH All Active Problems Right rotator cuff tendinitis (Acute) History of total right knee replacement (Acute 10/03/20) Arthrofibrosis of total knee arthroplasty (Acute) Medical History History of claustrophobia Tear of medial meniscus of right knee s/p right TKA Surgical History Colonoscopy - MAC (02/02/18) Internal derangement of right knee S/P Right knee arthroscopy: 12/29/2019 s/p right TKA: 10/03/20 Social History Smoking/Tobacco Use Status: Former Tobacco Use Quit Date: 10/03/19 Tobacco: How many years used: 46 Smoking risk assessment performed?: Yes Alcohol Intake: current Alcohol Intake frequency: 0-2 drinks per day Alcohol type: beer and hard liquor Drug use: Rarely Substance use type: marijuana Details: Pt states he quit chew 10/21, started when he was 7 years old!! Pt states he currently uses ZYN (natural nicotine) Current gender identity: male Do you feel safe at home: Yes Additional Social history: lives alone Meds Allergies and Home Medications Allergies Allergy/AdvReac Type Severity Reaction Status Date / Time No Known Allergies Allergy Verified 12/19/21 08:51 Home Medications Medication Instructions Recorded Confirmed Type acetaminophen 500 mg tablet 1,000 mg PO Q8H PRN #90 tab 10/03/20 12/18/21 Rx ibuprofen 600 mg tablet 600 mg PO QID 12/18/21 12/19/21 History hydrocodone 5 mg-acetaminophen 325 1 tab PO Q6H PRN #5 tab 12/19/21 Rx mg tablet Exam Resp Auscultation: clear to auscultation bilaterally Cardio Rate: regular rate Rhythm: regular rhythm Results Last Vital Signs Temp 35.9 C L 12/19/21 08:55 Pulse 66 12/19/21 08:55 Resp 16 12/19/21 08:55 BP 140/77 12/19/21 08:55 Pulse Ox 99 12/19/21 08:55
[2021-12-19] MEDS: ceFAZolin 2 GM/50 ML BAG IVPB (10:24)
[2021-12-19] MEDS: Bupivacaine 0.5% Pres-Free 30 ML VIAL (11:00)
--- NOTE | 2021-12-19 11:49 | W.ANESPOSTOP ---
Postoperative Evaluation Date, Time and Location Date Performed: 12/19/21 Time Performed: 11:49 Patient Location: Day Surgery Unit Vital Signs Most Recent Imported Vital Signs: Most Recent Vital Signs Temp Pulse Resp BP Pulse Ox 36.5 C 54 L 19 128/86 97 12/19/21 11:43 12/19/21 11:43 12/19/21 11:43 12/19/21 11:43 12/19/21 11:43 Pain Score Most Recent Pain Score: Most Recent Pain Score Pain Level 2 12/19/21 11:43 Assessment Mental Status: Awake (Alert & Oriented to Patient Baseline) Airway and Respiratory Function: Patent airway with normal (patient baseline) respiratory exam Cardiovascular Function: Hemodynamically Stable Hydration Status: Adequately Hydrated Nausea & Vomiting: No Nausea or Vomiting Pain: Pain is tolerable per patient Peripheral Nerve Block: Patient did not receive a nerve block
--- NOTE | 2021-12-19 12:14 | ROE_ITS ---
Date of service: 12/19/21 Time of Service: 11:45 Operative Note Operative Note DATE OF PROCEDURE: 12/19/21 PRE-OP DIAGNOSIS: Right Total Knee Arthrofibrosis POST-OP DIAGNOSIS: same PROCEDURE: Arthroscopic Synovectomy of 3 Compartments with Manipulation - Right Knee SURGEON: Orestes Portillo Refer to Anesthesia Record ESTIMATED BLOOD LOSS: 0 PATHOLOGY: none sent COMPLICATIONS: None Patient was transported to: PACU Patient's condition: stable Indications: I have seen Jai in clinic for symptoms of arthrofibrosis of the knee following a hyperflexion of the knee injury in the setting of recent knee replacement surgery. Nonoperative measures were exhausted but disability due to lack of motion persisted. I discussed knee arthroscopy with synovectomy with maniuplation with the patient. I reviewed the risks of the procedure to include, but not limited to, bleeding, infection, pain, continued stiffness, recurrence, blood clot. Despite these risks, the patient elected to proceed. Findings: Preoperative Range of Motion: Flexion: 95 Extension:0 Postoperative Range of Motion: Flexion:125 Extension:0 Procedure Description: Sebastian was greeted in the preoperative holding area where the correct side was identified and marked. The consent was reviewed with the patient and signed. The history and physical was updated. All questions were answered. He was taken back to the operating room. The patient was placed into the supine position on the operating room table. All bony prominences were well padded. Prophylactic antibiotics in the form of Cefazolin were administered. Preoperative range of motion was assessed as 0-95. The right leg was then prepped with Chloraprep and draped in a standard fashion with stockinette and extremity drape. A timeout to confirm correct identity, side and site, procedure, allergies, anesthesia, and medical concerns was performed. The leg was placed into a pneumatic leg meade, SPIDER2. A standard lateral portal was made at the lateral border of the patella tendon in line with the inferior pole of the patella, soft spot. The skin and deep tissue was incised sharply and the blunt trochar was inserted atraumatically. At this point had visualization of the femoral component. A superolateral portal was then established with spinal needle localization just superior and lateral to the patella. A knife was taken down through the skin and soft tissue to enter the knee joint. Starting in the superior compartment above the femoral component and anterior to the femur I released all scarring between the anterior femoral synovium and the overlying extensor mechanism. This was taken through all of any noticeable scar tissue until the superior patellar pouch was fully released and mobile. This resection was carried out mostly with electrocautery as well as shaver. Once this was released fully from lateral to medial superiorly I then continue working down the lateral gutter. All scar tissue in the lateral gutter was released so there is normal space and movement between the capsular tissues and the edge of the femoral component and femur. This was taken down through the lateral gutter such that I was able to identify the polyethylene to its posterior corner. Once again, all scar tissue in this area was resected so the polyethylene was easily visible and there is no interposed tissue in the back or the polyethylene was identified. I think continue to work anteriorly. To continue the synovectomy from the lateral compartment to the anterior compartment into the medial compartment, I placed a medial portal under spinal needle localization. Once this was in place it became another working portal and I continued the synovectomy through the anterior compartment to the medial compartment. Once again, I freed up the medial gutter so I was able to visualize the polyethylene from the anterior posterior margins. There is no interposed tissue after full synovectomy was performed. Adhesions between the capsule and the femur were released. This was continued up the medial gutter until it met up with the releases performed previously in the superior compartment. Any remnant scar tissue from around the patella was then removed with a shaver and electrocautery. The arthroscope was brought back into the suprapatellar pouch and the leg was in full extension. The knee was thoroughly irrigated with the arthroscopic fluid on high flow and pressure. Inflow was stopped and excess fluid was removed. The leg was removed from the spider leg meade and manipulation was performed. I first push the knee into flexion and was able to obtain 125 degrees. This was cylced multiple times. The wounds were closed with 4-0 Nylon. 0.25% bupivacaine was injected around the portal sites and into the knee. The wounds were dressed with Xeroform, 4x4 gauze, ABD pad, Kerlix and an CASSY wrap. A cryo- cuff was applied. The patient tolerated the procedure well and was returned to the Same Day Surgery area in a stable condition suffering no known complication..
== END 2021-12-19 13:25 | disposition home or self-care (01) ==
LOC: SUR 08:44
PROVIDERS: PCP Nurse Practitioner; Visit Provider Student in an Organized Health Care Education/Training Program
PROC: (CPT 29870; principal; 2021-12-19 11:15)
DX: T84.82XA Fibrosis due to internal orthopedic prosthetic devices, implants and grafts, initial encounter (principal); Z96.651 Presence of right artificial knee joint
CPT/HCPCS: 29876; J0690; J1100; J1885; J2001; J2405; J2704

== ENCOUNTER 2022-01-23 12:41 | Outpatient (REF) | payer MEDICAID, SELFPAY ==
[2022-01-24 09:14] LABS: Hepatitis C Ab w Rflx HCV PCR Negative (Negative)
== END 2022-01-23 12:42 | disposition home or self-care (01) ==
LOC: NCHCN 12:41
PROVIDERS: PCP Nurse Practitioner; Visit Provider Nurse Practitioner Family
DX: Z11.59 Encounter for screening for other viral diseases (principal)
CPT/HCPCS: 86803

== ENCOUNTER 2022-03-07 12:10 | Outpatient (CLI) | payer MEDICAID, SELFPAY ==
--- NOTE | 2022-03-07 08:30 | DI.RAD_ITS ---
Exam(s) XR KNEE LT 3V AP,LAT,BELKYS EXAM: XR KNEE LT 3V AP,LAT,BELKYS CLINICAL HISTORY: left knee pain TECHNIQUE: COMPARISON: CR XR KNEE RT 2V AP,LAT from 10/04/2021 FINDINGS: Three views were obtained. There are probable loose joint bodies seen posteriorly. There is soft ti ssue swelling over the anterior aspect of the knee. There is narrowing of the cartilaginous joint sp aces of medial tibiofemoral joint and patellofemoral joint. There are mild marginal osteophytes at m ultiple sites. IMPRESSION: Degenerative changes as described above. RADIATION DOSE DELIVERED: Total DLP
== END 2022-03-07 12:11 | disposition home or self-care (01) ==
LOC: DIORS 12:10
PROVIDERS: PCP Nurse Practitioner; Visit Provider Physician Assistant
DX: M25.562 Pain in left knee (principal); M79.89 Other specified soft tissue disorders; M17.12 Unilateral primary osteoarthritis, left knee
CPT/HCPCS: 73562

== ENCOUNTER 2022-11-20 19:18 | Outpatient (REF) | payer MEDICAID, SELFPAY ==
[2022-11-20 17:56] LABS: ALT 30 U/L (16-63); AST 21 U/L (15-37); Albumin 3.7 g/dL (3.4-5.0); Alkaline Phosphatase 61 U/L (46-116); Anion Gap 7.5 mmol/L (3-11); BUN 19 mg/dL (7-18); Bilirubin, Total 1.5 mg/dL (0.2-1.0); CO2 26.5 mmol/L (21.0-32.0); Calculated LDL 135 mg/dL (<100); Chloride 103 mmol/L (98-107); Cholesterol 192 mg/dL (<200); Estimated GFR 88.33 (mL/min/1.73m2); Glucose 100 mg/dL (74-106); HDL Cholesterol 40 mg/dL (40-60); Potassium 4.2 mmol/L (3.5-5.1); Sodium 137 mmol/L (136-145); Total Protein 7.4 g/dL (6.4-8.2); Triglyceride 85 mg/dL (<150)
[2022-11-21 18:26] LABS: PSA, Screening 2.3 ng/mL (<=3.5)
== END 2022-11-20 19:19 | disposition home or self-care (01) ==
LOC: NCHCN 19:18
PROVIDERS: PCP Nurse Practitioner Family; Visit Provider Physician Assistant
DX: I10 Essential (primary) hypertension (principal); Z12.5 Encounter for screening for malignant neoplasm of prostate
CPT/HCPCS: 80053; 80061; 84153

== ENCOUNTER 2023-10-22 14:30 | Outpatient (REF) | payer MEDICAID, SELFPAY ==
[2023-10-22 15:45] LABS: ALT 38 U/L (16-63); AST 16 U/L (15-37); Albumin 3.4 g/dL (3.4-5.0); Alkaline Phosphatase 51 U/L (46-116); Anion Gap 6.2 mmol/L (3-11); BUN 13 mg/dL (7-18); Bilirubin, Total 1.4 mg/dL (0.2-1.0); CO2 27.8 mmol/L (21.0-32.0); CREATININE 1.1 mg/dL (0.70-1.30); Calcium 9.3 mg/dL (8.5-10.1); Calculated LDL 113 mg/dL (<100); Chloride 102 mmol/L (98-107); Cholesterol 197 mg/dL (<200); Glucose 112 mg/dL (74-106); HDL Cholesterol 40 mg/dL (40-60); Potassium 4.3 mmol/L (3.5-5.1); Sodium 136 mmol/L (136-145); Total Protein 6.9 g/dL (6.4-8.2); Triglyceride 222 mg/dL (<150)
[2023-10-22 21:31] LABS: PSA, Screening 2.6 ng/mL (<=3.5)
== END 2023-10-22 14:31 | disposition home or self-care (01) ==
LOC: NCHCN 14:30
PROVIDERS: PCP Nurse Practitioner Family; Visit Provider Physician Assistant
DX: I10 Essential (primary) hypertension (principal); Z12.5 Encounter for screening for malignant neoplasm of prostate
CPT/HCPCS: 80053; 80061; 84153

== ENCOUNTER 2023-12-01 10:55 | Outpatient (CLI) | payer MEDICAID, SELFPAY ==
--- NOTE | 2023-12-01 09:15 | DI.RAD_ITS ---
Exam(s) XR KNEE RT 2V AP,LAT EXAM: XR KNEE RT 2V AP,LAT CLINICAL HISTORY: painful right TKA. TECHNIQUE: 2D digital imaging was performed. Two images were obtained. AP and lateral views were ob tained. COMPARISON: CR XR KNEE RT 1V from 09/20/2020 CR XR STANDING ALIGNMENT from 10/19/2020 CR XR KNEE RT 1V from 10/19/2020 CR XR KNEE RT 2V AP,LAT from 10/04/2021 CR XR KNEE LT 3V AP,LAT,BELKYS from 03/07/2022 FINDINGS: BONES: There are stable post operative changes of a right total knee replacement present. No fractur e or dislocation. JOINTS: The orthopedic hardware is in good position. There is lucency seen around the medial aspect of the femoral component of the orthopedic hardware on the AP view. This was not apparent on the branden or examination. SOFT TISSUE: Normal. IMPRESSION: New lucency seen around the medial aspect of the femoral component of the orthopedic hardware. Artif act versus evidence of loosening. DATA REPOSITORY: RADIATION DOSE DELIVERED:
== END 2023-12-01 10:56 | disposition home or self-care (01) ==
LOC: DIORS 10:57
PROVIDERS: PCP Nurse Practitioner Family; Visit Provider Physician Assistant
DX: T84.82XA Fibrosis due to internal orthopedic prosthetic devices, implants and grafts, initial encounter (principal); Z96.651 Presence of right artificial knee joint; Z47.1 Aftercare following joint replacement surgery
CPT/HCPCS: 73560

== ENCOUNTER 2023-12-10 08:46 | Day surgery (SDC) | payer MEDICAID, SELFPAY ==
[2023-12-10] VITALS (10 sets, daily range): BP systolic 91–141; BP diastolic 61–91; PULSE 54–76; RESP 14–19; TEMP 36–36.8; O2SAT 94–98; BMI 31.7
--- NOTE | 2023-12-10 07:31 | W.PM.DSUDISC ---
Date of service: 12/10/23 Time of Service: 07:32 Discharge Plan Disposition Patient Disposition: Home Condition: Good Discharge Details Reason For Visit: Open Synovectomy R TKR Attending Provider: Orestes Portillo Primary Care Provider: DANIAL FORTE Home Meds and New Rx's Prescriptions: New celecoxib 200 mg capsule 200 mg PO BID Qty: 60 0RF aspirin 81 mg tablet,delayed release (DR/EC) 81 mg PO BID Qty: 60 0RF acetaminophen 500 mg tablet 1,000 mg PO TID Qty: 90 3RF pantoprazole 40 mg tablet,delayed release (DR/EC) 40 mg PO DAILY Qty: 30 0RF dexamethasone 4 mg tablet 4 mg PO DAILY Qty: 2 0RF gabapentin 300 mg capsule 300 mg PO QHS Qty: 14 0RF oxycodone 5 mg tablet 5 mg PO Q4H MDD 6 tabs PRN (Reason: pain) Qty: 20 0RF Continued lisinopril-hydrochlorothiazide 10-12.5 mg tablet 1 tab PO DAILY Patient Comments: TAKE ONE TABLET BY MOUTH EVERY DAY. *REPLACING LISINOPRIL* Discontinued ibuprofen 600 mg tablet 600 mg PO QID Patient Comments: TAKE ONE TABLET BY MOUTH FOUR TIMES A DAY acetaminophen 500 mg tablet 1,000 mg PO Q8H PRN (Reason: pain) Qty: 90 3RF Discharge Instructions Additional Instructions: Total Knee Synovectomy Discharge Instructions Activity: The most important activity is to walk and to work on gentle motion (both flexion and extension). You should try to take short walks a few times a day. It is important that when resting you work on keeping the knee straight. Avoid putting a pillow behind the knee as this will encourage flexion. Work on range of motion exercises as provided by Physical Therapy. - Start outpatient physical therapy within 2 weeks. - You should wear the DEX hose on both legs for 2 weeks. You may remove these at night. You may also use any compression sock in place of the DEX hose. - Utilize [employer] to review exercises, see videos on exercises and obtain basic information pertaining to your surgery and your recovery. Dressing: Remove the Fuentes wrap by 2 days after your surgery and put on the DEX stocking given to you from the hospital. Keep the surgical dressing (underneath the FUENTES wrap) in place for at least one week. After the first week it may be removed and replaced with light gauze and tape or nothing. The wound and dressing may get wet after 3 days but avoid soaking the dressing or otherwise it will need to be changed. Many people prefer covering the dressing with cling wrap (saran wrap) to minimize it from getting soaked. If it gets wet, just pat dry. If it starts to peel off then it will need to be changed. Medications: - You should take Tylenol and anti-inflammatory Celebrex as your primary pain control medications. If the Celebrex is too expensive or not covered, please call the office for another alternative (Advil/Ibuprofen or Naproxen/Aleve) - You have been prescribed a stronger pain medication Oxycodone for breakthrough pain, take as needed as prescribed. - You have also been prescribed a stomach acid reduction agent Pantoprozole to help reduce stomach acid and reflux. - You have been prescribed Gabapentin to take at night for restlessness and nerve pain. - You will be taking Aspirin 81mg twice a day for DVT prevention unless instructed otherwise. - You have also been prescribed Decadron to take to control post-operative nausea and pain. You will start this tomorrow. - If you have constipation you should take Colace or Miralax (both [id number]). It takes most people 3-4 days to have a bowel movement. Follow-up: 2 weeks If you have any acute concerns or questions, please do not hesitate to contact the office at [phone]. You may contact Dr. Portillo with any questions after hours through the hospital at [phone] or on his cell phone at [phone]. Referrals: Orestes Portillo MD [ [facility] STAFF PHYSICIAN] - Equipment/Supplies: Walker Activity:: Activity as Tolerated Shower/Bathe:: 72 hours Diet:: As Tolerated DS: Diagnosis Discharge Diagnosis (1) Arthrofibrosis of total knee arthroplasty: Status: Acute
--- NOTE | 2023-12-10 08:30 | W.ANESPRE ---
General Info Date of Service Date Performed: 12/10/23 Height: 5 ft 4 in Weight: 83.915 kg Body Mass Index (BMI): 31.7 Surgical Procedure: Operation Date: 12/10/23 13:10 Proposed Procedure Side Surgeon p Knee Open Synovectomy Right Orestes Portillo MD Meds Allergies and Home Medications Allergies Allergy/AdvReac Type Severity Reaction Status Date / Time No Known Allergies Allergy Verified 12/10/23 08:50 Home Medication Medication Instructions Recorded lisinopril 10 1 tab PO DAILY 12/08/23 mg-hydrochlorothiazide 12.5 mg tablet acetaminophen 500 mg tablet 1,000 mg (2 x 500 mg) PO TID #90 12/10/23 tabs aspirin 81 mg tablet,delayed 81 mg PO BID #60 tabs 12/10/23 release celecoxib 200 mg capsule 200 mg PO BID #60 caps 12/10/23 dexamethasone 4 mg tablet 4 mg PO DAILY #2 tabs 12/10/23 gabapentin 300 mg capsule 300 mg PO QHS #14 caps 12/10/23 oxycodone 5 mg tablet 5 mg PO Q4H PRN pain #20 tabs 12/10/23 pantoprazole 40 mg tablet,delayed 40 mg PO DAILY #30 tabs 12/10/23 release Current Visit Medications: Current Medications Generic Name Dose Route Start Last Admin Trade Name Freq PRN Reason Stop Dose Admin Acetaminophen 1,000 mg 12/10/23 06:00 Acetaminophen 500 Mg Tab PO 01/09/24 05:59 PREOP JOSE Acetaminophen 1,000 mg 12/10/23 07:29 Acetaminophen 500 Mg Tab PO 01/09/24 07:28 TID PRN PRN Analgesia Celecoxib 400 mg 12/10/23 06:00 Celecoxib 200 Mg Cap PO 01/09/24 05:59 PREOP JOSE Docusate Sodium 100 mg 12/10/23 07:29 Docusate Sodium 100 Mg Cap PO 01/09/24 07:28 BID PRN PRN Constipation Gabapentin 300 mg 12/10/23 06:00 Gabapentin 300 Mg Cap PO 01/09/24 05:59 PREOP JOSE Ringer's Solution 1,000 mls @ 80 mls/hr 12/10/23 06:00 IV 01/08/24 23:59 INFUSION JOSE Cefazolin Sodium/Dextrose 2 gm in 50 mls @ 100 mls/hr 12/10/23 06:00 Ancef Duplex IVPB 01/08/24 23:59 PREOP JOSE IV Miscellaneous Supplies 1 each 12/10/23 06:00 Iv Access IV 01/08/24 23:59 DIRECTED JOSE Ondansetron HCl 4 mg 12/10/23 07:29 Ondansetron 4 Mg/2 Ml Vial IVP 01/09/24 07:28 Q6H PRN PRN Nausea Oxycodone HCl 0 mg 12/10/23 07:29 Oxycodone 5 Mg Tab PO 01/09/24 07:28 Q3H PRN PRN Pain Polyethylene Glycol 17 gm 12/10/23 07:29 Polyethylene Glycol 3350 17 Gm Packet PO 01/09/24 07:28 BID PRN PRN Constipation Sodium Chloride 0 ml 12/10/23 06:00 Normal Saline Flush 10 Ml Syr IV 01/08/24 23:59 PRN PRN Sodium Chloride 0 ml 12/10/23 06:00 Normal Saline 10 Ml Vial IJ 01/08/24 23:59 DIRECTED PRN Sterile Water 0 ml 12/10/23 06:00 Water,Injection,Sterile 10 Ml Vial IJ 01/08/24 23:59 DIRECTED PRN PFSH Active Problems Active Problems: Problem Status Onset Code Left knee DJD M17.12 MCL sprain of left knee S83.412A Pes anserinus bursitis of left knee M70.52 Right rotator cuff tendinitis M75.81 History of total right knee replacement 10/03/20 Z96.651 Arthrofibrosis of total knee arthroplasty 12/19/21 T84.82XA Medical History Medical History History of claustrophobia Tear of medial meniscus of right knee s/p right TKA Surgical History Surgical History Colonoscopy - MAC (02/02/18) Internal derangement of right knee S/P Right knee arthroscopy: 12/29/2019 s/p right TKA: 10/03/20 Tobacco Smoking/Tobacco Use Status: Former Tobacco Use Alcohol Alcohol Intake: former Substance Use Substance use: Rarely Substance use type: marijuana Details: Pt states he quit chew 10/21 Vital Signs and Lab Results Vital Signs Most Recent Vital Signs in EMR: PREOP VS reviewed from 0852 Lab Results Blood Type / Crossmatch: No Data to Display Complete Blood Count: No Data to Display Complete Metabolic Panel: No Data to Display Liver Function Panel: No Data to Display Coagulation Panel: No Data to Display Cardiac Panel: No Data to Display Arterial Blood Gas: No Data to Display Venous Blood Gas: No Data to Display Pancreas Panel: No Data to Display Thyroid Panel: No Data to Display Infectious Disease: No Data to Display Blood Cultures: No Data to Display Toxicology Panel: No Data to Display Anesthesia Assessment and Plan Anesthesia History Personal History: No History of Anesthesia Complications Family History: No Family History of Anesthesia Complications Exercise Tolerance Exercise Tolerance: Metabolic Equivalents>4 Pertinent Negatives Pertinent Negatives: No Symptoms of GERD, No Major Cardiovascular Symptoms or Complaints, No Major Pulmonary Symptoms or Complaints and No History of CVA/TIA Cardiac & Pulmonary Exam Cardiac Exam: Normal S1/S2 Heart Sounds Pulmonary Exam: Clear Bilateral Breath Sounds Implantable Cardiac Device Does patient have a Pacemaker or an ICD?: No Airway Exam Known Difficult Airway: No Mallampati Class: 2 Mouth Opening: Normal (> 3cm) Thyromental Distance: Greater than 3 cm Neck Range of Motion: Full ROM Neck Circumference: Normal Teeth Condition: Normal Dentition and Loose or Chipped (chipped fronts. ) ASA Classification ASA Score: ASA 2 Emergency Case?: No NPO Status NPO Status: NPO Clears >2 hours, Solids >8 hours Anesthesia Plan Resuscitation Status: Full Code Anesthesia Technique: Spinal Anesthesia Airway Planned: Natural Airway Pain Management: Surgeon and patient request nerve block Monitors Used: Standard Monitors
[2023-12-10] MEDS: Celecoxib 200 MG CAP 400 MG PO (09:05)
[2023-12-10] MEDS: Acetaminophen 500 MG TAB 1000 MG PO (09:05)
[2023-12-10] MEDS: Gabapentin 300 MG CAP PO (09:06)
[2023-12-10] MEDS: Lactated Ringers 1,000 ML 80 ML IV (09:06)
[2023-12-10] MEDS: ceFAZolin 2 GM/50 ML BAG IVPB (09:37)
--- NOTE | 2023-12-10 09:47 | W.ANESNERVE ---
Nerve Block Single Injection Procedure Date and Time Date Performed: 12/10/23 Procedure Start: 09:10 Location Where Procedure Performed Procedure Location: Day Surgery Unit Reason Performed: Postoperative Analgesia Requesting Provider: Orestes Portillo Timeout Performed Timeout Performed: Yes Monitoring Used ECG, Blood Pressure and SpO2 Sterility Sterility: Hand Hygiene, Surgical Cap, Surgical Mask, Sterile Gloves and Chlorhexidine Sedation Given During Procedure Sedation Given (Indicate Dose Given): Versed IV Dose:: 2 mg Patient Mental Status Patient Mental Status: Sedate with meaningful communication Nerve Block 1st Nerve Block: Laterality: Right Block Type: Adductor Canal Ultrasound Image Saved?: Yes Needle / Catheter Used: 100mm SonoPlex II Local Anesthetic Bolus (Indicate Dose Given): Lidocaine used for local infiltration of skin, Injected in 3-5ml increments after negative blood aspiration and Bupivacaine 0.25% Dose:: 15 ml Additives (Indicate Dose Given): Normal Saline Ultrasound: Sterile probe cover and gel used Nerve Stimulator: Supplement to Ultrasound use and No twitch or parasthesia noted < 0.5 mA Paresthesia: None Procedure Tolerated: No Complications and Patient tolerated well Procedure Outcome: Successful Performed By: Karthik Mejia
--- NOTE | 2023-12-10 10:39 | W.PM.OP ---
Date of service: 12/10/23 Time of Service: 09:45 Operative Note Operative Note DATE OF PROCEDURE: 12/10/23 PRE-OP DIAGNOSIS: Right knee arthrofibrosis, status post knee replacement POST-OP DIAGNOSIS: same PROCEDURE: Open synovectomy, right knee SURGEON: Orestes Portillo WINDOWS MIGRATION TECHNICIAN: Tramaine Patel ANESTHESIA TYPE: Spinal Refer to Anesthesia Record ESTIMATED BLOOD LOSS: 50 PATHOLOGY: none sent TOURNIQUET TIME: 0 COMPLICATIONS: None Patient was transported to: PACU Patient's condition: stable Indications: Jai is a 58-year-old male who I have seen for his right knee replacement. He did very well initially. He then had trauma where he fell through the floor causing a hyperflexion injury to the right knee. He had significant hemarthrosis following this and resulted with some stiffness. I performed an arthroscopic synovectomy which completely relieved his symptoms and he was able to return to full range of motion. However, over the past year or so he has had worsening range of motion. He denies any significant pain in the knee except for the difficulty with range of motion. I discussed treatment options with him and he elected to proceed with an open synovectomy. Once again I discussed the surgery. I reviewed the risk to include bleeding, infection, pain, recurrent stiffness. Despite these risk, he elects to proceed. Findings: There was a hard stop of motion at about 80 degrees. Extension was nearly full. After synovectomy was completed range of motion was approximately 0 to 130 degrees. Procedure Description: Jai was greeted in the preoperative holding area where the correct side was identified and marked. The consent was reviewed with the patient and signed. The history and physical was updated. All questions were answered. Preoperative mediacations were administered: Acetaminophen 1000mg, Celebrex 400mg, and Gabapentin 300mg. An adductor canal block was then administered by the anesthesia team in the PACU. Jai was taken back to the operating room. A spinal anesthestic was administered. The patient was placed into the supine position on the operating room table. Posts were placed for positioning during the procedure. All bony prominences were well padded. Prophylactic antibiotics in the form of Cefazolin were administered. The left leg was then prepped with Chloraprep and draped in a standard fashion with impervious stockinette. A second prep with Chloraprep was performed prior to application of Iodine impregnated skin protection. A timeout to confirm correct identity, side and site, procedure, allergies, anesthesia, and medical concerns was performed. With the knee in some flexion, a midline incision was made overlying the knee utilizing the previous incision. Full thickness skin flaps were raised once the extensor mechanism was encountered. These were raised medially and laterally. Any bleeding was controlled with electrocautery. Medial and lateral skin flaps were raised to fully evaluate the extensor mechanism. There is significant adhesion of the subcutaneous tissue to the extensor mechanism. This was elevated off of the extensor mechanism medially and laterally and proximally. Once this was completed, the extensor mechanism was identified and the arthrotomy was performed. The tissue was very dense. It was quite thickened throughout the entirety of the knee. Utilizing 2 Allis and 2 Riya clamps I performed an aggressive synovectomy, superiorly, medially, and laterally. Synovium was resected off of the overlying capsule and extensor mechanism and off of the anterior aspect of the femur. Further attention was placed into the gutters where this soft tissue was resected. I had visualization of the bone?implant interface and there seem to be no gross loosening. The soft tissues from the medial aspect of the tibia were elevated to better expose the medial gutter as were the adherent tissues between the patellar tendon and the anterior lateral tibia. Once again, the synovium and dense adhesions were released. I then elevated off the anterior musculature from the anterior femur by using a Estrada elevator up the anterior femur. Similarly, I also released the anterior musculature from the overlying soft tissues with a Estrada elevator. At this point, the knee was taken through range of motion. The flexion had significantly improved to nearly 130 degrees. The patella was tracking without thumbs. There is no significant block to extension. I was able to debride into the gutters. Since there was no significant flexion contracture I decided not to remove the polyethylene and perform any posterior debridement. At this point the knee was then irrigated with Irrisept chlorhexidine solution. The soft tissues were injected with a mixture of ropivacaine, epinephrine, clonidine, ketorolac, diluted to 100 cc. There was no significant bleeding. The arthrotomy was then closed, at 90 degrees, with #2 FiberWire followed by a running #1 barbed PDS suture, strata fix. The deep tissues were then reapproximated with 0 and 2-0 Vicryl. The skin was closed with a running 3-0 Monocryl in a subcuticular fashion. This was reinforced with skin glue. A Mepilex silver dressing was applied along with a ewji-se-[id number] CASSY wrap. A CryoCuff was applied. Son was transferred to the hospital stretcher without difficulty an suffering no apparent complication. Jai has a good prognosis. Aspirin 81mg BID will be used for DVT prophylaxis. Physical therapy will start right away with the emphasis on flexion.
--- NOTE | 2023-12-10 12:06 | W.ANESPOSTOP ---
Postoperative Evaluation Date, Time and Location Date Performed: 12/10/23 Time Performed: 11:45 Patient Location: Day Surgery Unit Vital Signs Most Recent Imported Vital Signs: Most Recent Vital Signs Temp Pulse Resp BP Pulse Ox 36.2 C L 57 L 16 104/65 96 12/10/23 11:21 12/10/23 11:21 12/10/23 11:21 12/10/23 11:21 12/10/23 11:21 Pain Score Most Recent Pain Score: Most Recent Pain Score Pain Level 0 12/10/23 11:21 Assessment Mental Status: Awake (Alert & Oriented to Patient Baseline) Airway and Respiratory Function: Patent airway with normal (patient baseline) respiratory exam Cardiovascular Function: Hemodynamically Stable Hydration Status: Adequately Hydrated Nausea & Vomiting: No Nausea or Vomiting Pain: Pt. Denies Any Pain Peripheral Nerve Block: Regional nerve block not resolved at time of post operative discharge Postoperative Comments:: Spinal appropriately receding. RN to notify anesthesia if spinal does not recede fully.
--- NOTE | 2023-12-10 13:56 | PT.INIE ---
PT Notes Visit Reasons: Open Synovectomy R TKR Physical Therapy Day Surgery Unit Initial Evaluation Date: 12/10/2023 Referring Doctor: LIO Dawn PT Orders: PT CONSULT: S/P Ortho Surgery Precautions: WBAT on R LE with AD. Patient Profile/Admitting Diagnosis: Patient with diagnosis of arthrofibrosis of R TKA and is S/P open synovectomy on postoperative day 0. R TKA was originally done on 10/03/2020. He is also S/P R knee arthroscopic synovectomy on 12/19/2021. PMHX: All Active Problems (Updated 09/16/22 @ 09:56 by Asuncion Johnson RN) Left knee DJD (Acute) Steroid injection: 09/16/22; 06/14/2022; 03/07/2022 MCL sprain of left knee (Acute) Pes anserinus bursitis of left knee (Acute) Depo-Medrol injection: 03/07/2022 Right rotator cuff tendinitis (Acute) History of total right knee replacement (Acute 10/03/20) Arthrofibrosis of total knee arthroplasty (Acute 12/19/21) s/p arthroscopic synovectomy 12/19/2021 Medical History History of claustrophobia Tear of medial meniscus of right knee s/p right TKA Surgical History Colonoscopy - MAC (02/02/18) Internal derangement of right knee S/P Right knee arthroscopy: 12/29/2019 s/p right TKA: 10/03/20 Social History/Home Situation: Lives with lesly in a private home with 2 steps to enter. 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 Independent with all aspects of ADLs prior to surgery. Equipment Owned/DME: Bilateral axillary crutches Subjective: Cooperative and very motivated to go home today. Reports 1-2/10 pain in the R knee at rest. Denies headache, chest pain, lightheadedness throughout. Objective: General Observation: Sitting on chair. CASSY wraps to R knee. Cryocuff to R knee. Lesly Manrique present. Mental Status: Alert and oriented x 4 Pain: 1-2/10 in the right knee Vital Signs: Closeley monitored by nursing staff ROM: Right Lower Extremity: Hip flexion WFL. Hip abduction WFL. Knee flexion 0 to 90 degrees ACTIVELY. Ankle dorsiflexion WFL. Ankle plantarflexion WFL. Left Lower Extremity: Hip flexion WFL. Hip abduction WFL. Knee flexion WFL. Ankle dorsiflexion WFL. Ankle plantarflexion WFL. Strength: Right Lower Extremity: Hip flexors 4/5. Hip abductors 4/5. Knee flexors 3-/5. Knee extensors 3-/5. Ankle dorsiflexors 5/5. Ankle plantarflexors 5/5. Left Lower Extremity:Hip flexors 5/5. Hip abductors 5/5. Knee flexors 5/5. Knee extensors 5/5. Ankle dorsiflexors 5/5. Ankle plantarflexors 5/5. Sensation: Intact as to pain and pressure on bilateral lower extremities. Bed Mobility/Transfers: Rolling independent Supine to sit independent Sit to supine independent Sit to stand supervision Stand to sit supervision Bed to chair supervision Chair to bed supervision Gait: Faciliatated safe and correct level surface ambulation covering a distance of 150 feet on level surface using bilateral axillary crutches with standby assist of PT. Three-point gait pattern. Minimal verbal cues given for safe and correct three point gait and 2-point gait patterns, movement sequence, AD management, and posture to reduce fall risk and minimize pain report. Stairs: Guided patient with safe and correct negotiation of 6 x 4 inch steps and 4 x 6 inch steps while holding onto bilateral rails with step to gait pattern requiring moderate verbal cueing for corect movement sequence, increased flexion on the right knee during each ascent, and posture to reduce fall risk and minimize pain report. Balance: Static Sitting: Normal Dynamic Sitting: Normal Static Standing: Good Dynamic Standing: Fair Special Tests: Mobility Limitations Standardized Measure [facility] AM-PAC 6 clicks Basic Mobility Inpatient Short Form: Raw Score: 23 CMS Score: 11% deficit Informed Consent/Education: Patient instructed in purpose of PT consult and plan of care. Trained patient with correct performance of exercises below to maximize motor control, joint flexibility, soft tissue extensibility of the R knee musculature: Access Code: [email or web address] URL: [email or web address] Date: 12/10/2023 Prepared by: Alvina Dirk Exercises - Supine Quad Set - 1 x daily - 7 x weekly - 1 sets - 10 reps - 5 hold - Supine Heel Slide - 1 x daily - 7 x weekly - 1 sets - 10 reps - 5 hold - Supine Ankle Pumps - 1 x daily - 7 x weekly - 1 sets - 10 reps - 5 hold - Small Range Straight Leg Raise - 1 x daily - 7 x weekly - 1 sets - 10 reps - 5 hold - Seated March - 1 x daily - 7 x weekly - 1 sets - 10 reps - 5 hold Assessment: Jai requires the use of bilateral axillary crutches to maximize independence and his fall risk at home. He will have good support to safely manage at home. He will benfit from outpatient PT services in order to facilitate return to premorbid independent level and to vocational activities. Patient presents with clinical signs and symptoms consistent with current/admitting diagnoses that have resulted to mobility limitations, gait instability, generalized weakness, and impairment of motor control as demonstrated by the following impairment level findings: 1. Decreased strength to R knee major muscle groups 2. Impaired standing balance 3. Impaired activity tolerance 4. Limitation of joint range of motion in right knee flexion Impairments are contributing to the following functional limitations: 1. Inability to safely ambulate without assistive device 2. Increase completion time for mobility ADL performance 3. Increased fall risk Patient is assessed as a 78814 moderate complexity based on the following: History: 55-year-old male with impairment level findings, functional limitations, and past medical history as indicated above Examination: Demonstrable impairment in strength, balance, and mobility level with underlying impairments and functional limitations as documented above Presentation: Evolving Decision Makin moderate complexity Goals: N/A. PT consult and 1 treatment session only for education and training on functional mobility performance and HEP. Plan of Care/Treatment Plan: N/A. PT consult and 1 treatment session only for education and training on functional mobility performance and HEP. DISCHARGE RECOMMENDATIONS: Home when medically cleared by orthopedic surgeon. No equipment needs at this time. Outpatient PT services in 2 weeks to facilitate return to premorbid independent level and to vocational activities. TREATMENT CODE/TIME: 83088 x 20 minutes for 1 unit, 07653 x 15 minutes for 1 unit (13:10-13:45). Thank you for the opportunity to participate in the care of this patient. Alvina Cavazos PT, DPT, CLT [facility], [place]
== END 2023-12-10 14:15 | disposition home or self-care (01) ==
LOC: SUR 08:47
PROVIDERS: PCP Nurse Practitioner Family; Visit Provider Student in an Organized Health Care Education/Training Program
PROC: (CPT 27335; principal; 2023-12-10 13:00)
DX: T84.82XA Fibrosis due to internal orthopedic prosthetic devices, implants and grafts, initial encounter (principal); Z96.651 Presence of right artificial knee joint
CPT/HCPCS: 27335; 76942; 97162; 97530; J0665; J0690; J1100; J2250; J2371; J2401; J2405; J2704

== ENCOUNTER 2024-01-28 11:32 | Day surgery (SDC) | payer MEDICAID, SELFPAY ==
[2024-01-28] VITALS (8 sets, daily range): BP systolic 126–151; BP diastolic 88–113; PULSE 60–79; RESP 15–22; TEMP 36.1–36.5; O2SAT 95–99; BMI 29.8
--- NOTE | 2024-01-28 09:30 | W.PM.DSUDISC ---
Date of service: 01/28/24 Time of Service: 09:31 Discharge Plan Disposition Patient Disposition: Home Condition: Good Discharge Details Reason For Visit: R TKR Manip Attending Provider: Orestes Portillo Primary Care Provider: Marcos Castillo Home Meds and New Rx's Prescriptions: New hydrocodone-acetaminophen 5-325 mg tablet 1 tab PO Q6H PRN (Reason: pain) Qty: 6 0RF Continued lisinopril-hydrochlorothiazide 10-12.5 mg tablet 1 tab PO DAILY Patient Comments: TAKE ONE TABLET BY MOUTH EVERY DAY. *REPLACING LISINOPRIL* acetaminophen 500 mg tablet 1,000 mg PO TID Qty: 90 3RF ibuprofen [Advil] 200 mg tablet 600 mg PO DAILY PRN Discharge Instructions Additional Instructions: Knee Manipulation Discharge Instructions Activity: You should begin moving as soon as possible. You may work on flexion but also equally maintain extension. You may bear weight as tolerated, using crutches only for support/comfort. You should apply ice to help with swelling and elevate when possible (especially in the first few days). Medications: - Rarely does this require any stronger pain medications. - Recommend to take up to 1000mg of Acetaminophen (Tylenol) and 600mg of Ibuprofen (Advil) every 8 hours as needed. You may continue your larger strength tablets but you also may use [id number]. Follow-up: 7-10 days Equipment/Supplies: Partial Weight Bearing Crutches Activity:: Activity as Tolerated Diet:: As Tolerated Discharge Orders Discharge Orders: Discharge Order (Routine); Ordered 01/28/24 Ordered By: Tramaine Patel
--- NOTE | 2024-01-28 12:47 | ANES.PREOP_ITS ---
General Info Date of Service Date Performed: 01/28/24 Height: 5 ft 4 in Weight: 78.9 kg Body Mass Index (BMI): 29.8 Surgical Procedure: Operation Date: 01/28/24 14:10 Proposed Procedure Side Surgeon p Knee Manipulation of Knee Orestes Portillo MD Meds Allergies and Home Medications Allergies Allergy/AdvReac Type Severity Reaction Status Date / Time No Known Allergies Allergy Verified 01/28/24 12:16 Home Medication Medication Instructions Recorded lisinopril 10 1 tab PO DAILY 12/08/23 mg-hydrochlorothiazide 12.5 mg tablet acetaminophen 500 mg tablet 1,000 mg (2 x 500 mg) PO TID #90 12/10/23 tabs ibuprofen 200 mg tablet (Advil) 600 mg PO DAILY PRN 01/27/24 Current Visit Medications: Current Medications Generic Name Dose Route Start Last Admin Trade Name Freq PRN Reason Stop Dose Admin Acetaminophen 650 mg 01/28/24 09:28 Acetaminophen 325 Mg Tab PO 02/27/24 09:27 Q4H PRN PRN Ringer's Solution 1,000 mls @ 80 mls/hr 01/28/24 06:00 IV 01/28/24 23:59 INFUSION JOSE IV Miscellaneous Supplies 1 each 01/28/24 06:00 Iv Access IV 01/28/24 23:59 DIRECTED JOSE Sodium Chloride 0 ml 01/28/24 06:00 Normal Saline Flush 10 Ml Syr IV 01/28/24 23:59 PRN PRN Sodium Chloride 0 ml 01/28/24 06:00 Normal Saline 10 Ml Vial IJ 01/28/24 23:59 DIRECTED PRN Sterile Water 0 ml 01/28/24 06:00 Water,Injection,Sterile 10 Ml Vial IJ 01/28/24 23:59 DIRECTED PRN PFSH Active Problems Active Problems: Problem Status Onset Code Left knee DJD M17.12 MCL sprain of left knee S83.412A Pes anserinus bursitis of left knee M70.52 Right rotator cuff tendinitis M75.81 Arthrofibrosis of total knee arthroplasty 12/19/21 T84.82XA Medical History Medical History History of claustrophobia Tear of medial meniscus of right knee s/p right TKA Surgical History Surgical History History of total right knee replacement (10/03/20) Internal derangement of right knee S/P Right knee arthroscopy: 12/29/2019 s/p right TKA: 10/03/20 Colonoscopy - MAC (02/02/18) Tobacco Smoking/Tobacco Use Status: Former Tobacco Use Alcohol Alcohol Intake: former Substance Use Substance use: Rarely Substance use type: marijuana Details: Pt states he quit chew 10/21 Vital Signs and Lab Results Vital Signs Most Recent Vital Signs in EMR: Most Recent Vital Signs Temp Pulse Resp BP Pulse Ox 36.4 C L 68 18 126/98 H 97 01/28/24 12:16 01/28/24 12:16 01/28/24 12:16 01/28/24 12:16 01/28/24 12:16 Lab Results Blood Type / Crossmatch: No Data to Display Complete Blood Count: No Data to Display Complete Metabolic Panel: No Data to Display Liver Function Panel: No Data to Display Coagulation Panel: No Data to Display Cardiac Panel: No Data to Display Arterial Blood Gas: No Data to Display Venous Blood Gas: No Data to Display Pancreas Panel: No Data to Display Thyroid Panel: No Data to Display Infectious Disease: No Data to Display Blood Cultures: No Data to Display Toxicology Panel: 2 No Data to Display Anesthesia Assessment and Plan Anesthesia History Personal History: No History of Anesthesia Complications Family History: No Family History of Anesthesia Complications Exercise Tolerance Exercise Tolerance: Metabolic Equivalents>4 Cardiac & Pulmonary Exam Cardiac Exam: Normal S1/S2 Heart Sounds Pulmonary Exam: Clear Bilateral Breath Sounds Implantable Cardiac Device Does patient have a Pacemaker or an ICD?: No Airway Exam Known Difficult Airway: No Mallampati Class: 2 Mouth Opening: Normal (> 3cm) Thyromental Distance: Greater than 3 cm Neck Range of Motion: Full ROM Neck Circumference: Normal Teeth Condition: Normal Dentition and Loose or Chipped (chipped fronts. ) ASA Classification ASA Score: ASA 2 Emergency Case?: No NPO Status NPO Status: NPO Clears >2 hours, Solids >8 hours Anesthesia Plan Resuscitation Status: Full Code Anesthesia Technique: General Anesthesia Airway Planned: Natural Airway Monitors Used: Standard Monitors Preoperative Comments:: 56 yo male for knee manipulation. Sig PMHx: denies. occ ETOH, nicotine. Previous Anes: LMA 5, easy mask.
[2024-01-28] MEDS: Lactated Ringers 1,000 ML 80 ML IV (12:48)
[2024-01-28] MEDS: Bupivacaine 0.25% Pres-Free 30 ML VIAL (13:47)
[2024-01-28] MEDS: methylPREDNISolone ACETATE 80 MG/ML VIAL (13:48)
--- NOTE | 2024-01-28 14:00 | ROE_ITS ---
Date of service: 01/28/24 Time of Service: 13:40 Operative Note Operative Note DATE OF PROCEDURE: 01/28/24 PRE-OP DIAGNOSIS: Right Knee Arthrofibrosis s/p Replacement Left Knee Arthritis POST-OP DIAGNOSIS: same PROCEDURE: Right Knee Manipulation Under Anesthesia Left Knee Injection SURGEON: Orestes Portillo ANESTHESIA TYPE: General:No Airway Refer to Anesthesia Record ESTIMATED BLOOD LOSS: 0 PATHOLOGY: none sent TOURNIQUET TIME: 0 COMPLICATIONS: None Patient was transported to: PACU Patient's condition: stable Indications: Jai is a 58 year old male who is s/p knee replacement. Despite diligent work with physical therapy there has been continued stiffness. To assist with mobility, I offered a manipulation under anesthesia. I discussed the risks of the procedure to include bleeding, pain, recurrent stiffness, fracture. Despite these risks, he elects to proceed. He also recently had an injection of the left knee which he feels did not help at all as previous ones had. Therefore, the consideration that this was in the wrong location and I offered repeat injection to the left knee. Findings: Preoperative flexion = 90 Postoperative flexion = 115 Preoperative extension = 5 Postoperative extension = 1-2 Procedure Description: The patient was greeted in the preoperative holding area. Identity was confirmed and the correct side was identified and marked. The consent was reviewed the patient and signed. History and physical was updated. Jai was taken back to the operating room. The right side was identified as the correct side. A timeout was performed for safe surgery. A general anesthe tic was administered. The knee was then prepped with ChloraPrep and an intra-articular injection of 10 cc of 0.25% bupivacaine was administered. Once a muscle relaxant was fully on board manipulation was performed. Pre- manipulation range of motion was noted. A gentle manipulation was performed first into flexion using a very small lever arm and adding gentle and progressive pressure to the tibia. There is audible and palpable crepitus with improvement in range of motion. This was cycled and repeated multiple times. The leg was then brought into extension and gentle anterior posterior pressure was applied with a supported hand behind the proximal tibia and knee. This was brought back into flexion was once again manipulated with gentle and progressive pressure. Final range of motion numbers were recorded. A Band-Aid was applied to the injection site. Per his request, the medial side the knee was then prepped. This superomedial approach was performed per patient request. Soft spot was identified and the knee was entered with a 22-gauge needle. I was able to withdraw some joint fluid to confirm intra-articular placement and then I injected 8 cc of 0.25% bupivacaine along with 80 mg of Depo-Medrol. A Band-Aid was applied. He was then awakened from anesthesia and taken to the PACU in stable condition.
[2024-01-28] MEDS: fentaNYL 100 MCG/2 ML VIAL IVP (14:14)
--- NOTE | 2024-01-28 14:21 | W.ANESPOSTOP ---
Postoperative Evaluation Date, Time and Location Date Performed: 01/28/24 Time Performed: 14:21 Patient Location: Day Surgery Unit Vital Signs Most Recent Imported Vital Signs: Most Recent Vital Signs Temp Pulse Resp BP Pulse Ox 36.5 C 70 16 151/113 H 99 01/28/24 14:10 01/28/24 14:10 01/28/24 14:10 01/28/24 14:10 01/28/24 14:10 Pain Score Most Recent Pain Score: Most Recent Pain Score Pain Level 5 01/28/24 14:10 Assessment Mental Status: Awake (Alert & Oriented to Patient Baseline) Airway and Respiratory Function: Patent airway with normal (patient baseline) respiratory exam Cardiovascular Function: Hemodynamically Stable Hydration Status: Adequately Hydrated Nausea & Vomiting: No Nausea or Vomiting Pain: Pain is tolerable per patient Peripheral Nerve Block: Patient did not receive a nerve block
== END 2024-01-28 15:30 | disposition home or self-care (01) ==
PROVIDERS: PCP Physician Assistant; Visit Provider Student in an Organized Health Care Education/Training Program
PROC: (CPT 27570; principal; 2024-01-28 14:00)
DX: T84.82XA Fibrosis due to internal orthopedic prosthetic devices, implants and grafts, initial encounter (principal); Z96.651 Presence of right artificial knee joint; M17.12 Unilateral primary osteoarthritis, left knee
CPT/HCPCS: 27570; 20610; J0330; J0665; J1040; J1885; J2704; J3010

== ENCOUNTER 2024-11-01 08:59 | Outpatient (REF) | payer MEDICAID, SELFPAY ==
--- OUTSIDE RECORDS SUMMARY | 2024-11-01 09:04 | XMS_ITS | Encounter Summary ---
Author Organization [facility] Address [address] [place] [address] Care Team Providers Care Locum Tenens Psychiatrist Name Role Phone Unknown, Provider Primary Care Provider Unava ilable Encounter Details Date Type Department Care Team (Late st Contact Info) Description 02/02/2018 Results Only [facility] [phone] Norma Nguyen MD [address] [place] [address] [place], [place] [id number] Social History Tobacco Use Types Packs/Day Years Used Date Smoking Tobacco: Never Assessed Sex and Gender Information Value Date Recorded Sex Assigned at Not on file Legal Sex Male 16:59 EDT Gender Identity Not on file Sexual Orientation Not on file documented as of this encounter Plan of Treatment Not on file documented as of this encounter Procedures Procedure Name Priority Date/Time Associated Diagnosis Comments SURGICAL PATHOLOGY Routine 02/02/2018 17 :10 EDT documented in this encounter Results * SURGICAL PATHOLOGY (02/02/2018 17:10 EDT) Pathology Report: SURGICAL PATHOLOGY REPORT Reports generated via electronic interface contain original data; however they are lacking the format of the original report. Caution should be taken when reading/interpret ing unformatted reports. Name: ? OUSMANE SIMMS ? Accession #: ? [id number] ? : ? 1965 (Age: 52) ??M ? Collect Date: ? 02/02/2018 ? Location: ? [facility] ? Receive Date: ? 02/02/2018 ? Provider: NORMA NGUYEN MD Copy to: ARMANDO HERNANDEZ ASSISTANT PRODUCT MANAGER ? Final Pathologic Diagnosis: COLON, SIGMOID POLYP, POLYPECTOMY: - Fragment of unremarkable colonic mucosa. - No polypoid lesion noted (multiple levels examined). ?? Document reviewed and electronically signed by: SHAYAN BARRERA MD Report ??Date: 02/03/2018 16:35 By the signature above, the attending physician certifies that he/she has personally conducted a gross and/or microscopic examination of the described specimens and rendered or confirmed the above diagnosis. Specimen(s) Received: Sigmoid polyp Clinical History: Colorectal screening Gross Description: ? Received in formalin labelled with proper patient identification (initials B, M) and sigmoid polyp is a single pink-braswell tissue fragment (0.2 x 0.2 x 0.1 cm). Submitted intact in block 1. LIO Gomez (ASCP) 02/03/2018 7:40 AM End of Report [facility] 02/02/2018 17:1 0 EDT 02/02/2018 17:10 EDT us Norma Nguyen MD PATHOLOGY ORDERABLES Fin al Result [facility] [address] [place] [address] documented in this encounter Visit Diagnoses Not on filedocumented in this encounter Care Teams Locum Tenens Psychiatrist Relationship Specialty Start Date End Date Unknown, Provider, PCP - General 02/02/18 02/03/18 documented as of this encounter
--- OUTSIDE RECORDS SUMMARY | 2024-11-01 09:04 | XMS_ITS | Encounter Summary ---
Author Organization Health system Address [address] [place] [address] Care Team Providers Care Art Historian Name Role Phone Unknown, Provider MD Primary Care Provider Unava ilable Encounter Details Date Type Department Care Team (Latest Contact Info) Description 02/02/2018 9:44 EDT - 02/02/2018 23:59 EDT Hospital Encounter [address] [address] Unknown, ProviderMD Discharge Disposition: Home or Self Care Social History Tobacco Use Types Packs/Day Years Used Date Smoking Tobacco: Never Assessed Sex and Gender Information Value Date Recorded Sex Assigned at Not on file Legal Sex Male 16:59 EDT Gender Identity Not on file Sexual Orientation Not on file documented as of this encounter Discharge Disposition Disposition Code Departure Means Destination Home or Self [facility] documented in this encounter Plan of Treatment Not on file documented as of this encounter Visit Diagnoses Not on filedocumented in this encounter Care Teams Art Historian Relationship Specialty Start Date End Date Unknown, Provider, PCP - General 02/02/18 02/03/18 documented as of this encounter
--- OUTSIDE RECORDS SUMMARY | 2024-11-01 09:04 | XMS_ITS | Encounter Summary ---
Author Organization [facility] Address [address] [place] [address] Care Team Providers Care Nurse Ob Name Role Phone Alta Barreto TRUCKING CONTRACTOR Primary Care Provider Encounter Details Date Type Department Care Team (Late st Contact Info) Description 10/22/2023 Lab Requisition [facility] Pathology & Laboratory Medicine - [facility] [address], [place] [id number] Outr Resulting Lab, Provider Social History Tobacco Use Types Packs/Day Years Used Date Smoking Tobacco: Never Assessed Interpersonal Safety Answer Date Record ed Physically Hurt Never 06/05/2020 Verbally Threaten Not on file 06/05/2020 Sex and Gender Information Value Date Recorded Sex Assigned at Not on file Legal Sex Male 16:59 EDT Gender Identity Not on file Sexual Orientation Not on file documented as of this encounter Plan of Treatment Not on file documented as of this encounter Procedures Procedure Name Priority Date/Time Associated Diagnosis Comments PSA TOTAL, DIAGNOSTIC Routine 10/22/2023 8:03 EST documented in this encounter Results * PSA TOTAL, DIAGNOSTIC (10/22/2023 8:03 EST) PSA 2.6 <=3.5 ng/mL 10/22/2023 21:25 EST [facility] Blood VENOUS BLOOD / Unknown 10/22/2023 8:03 EST 10/22/2023 20:36 EST Narrative [facility] - 10/22/2023 21:25 EST NOTE: Serum PSA concentration should not be interpreted as absolute evidence for the presence or absence of malignant disease. Assayed on Siemens ADVIA Centaur XPT using chemiluminescent technology.??Values obtained by using different assay methods cannot be used interchangeably. us Provider Outr Resulting Lab CHEMISTRY & BLOOD GA S ORDERABLES Final Result [facility] [address] [place] [address] documented in this encounter Visit Diagnoses Not on filedocumented in this encounter Care Teams Nurse Ob Relationship Specialty Start Date End Date Atla Barreto NP [address] [place] [address] PCP - General 02/04/18 documented as of this encounter
--- OUTSIDE RECORDS SUMMARY | 2024-11-01 09:04 | XMS_ITS | Clinical Summary ---
Author Organization [facility] Address [address] [place] [address] Care Team Providers Care Patient Observer Name Role Phone JigarizabelAlta lake RUPINDER Primary Care Provider [phone] Social History Tobacco Use Types Packs/Day Years Used Date Smoking Tobacco: Never Assessed Interpersonal Safety Answer Date Record ed Physically Hurt Never 06/05/2020 Verbally Threaten Not on file 06/05/2020 Sex and Gender Information Value Date Recorded Sex Assigned at Not on file Legal Sex Male 16:59 EDT Gender Identity Not on file Sexual Orientation Not on file Plan of Treatment Health Maintenance Due Date Last Done Comments Hepatitis B Vaccine (1 of 3 - 19+ 3-dose series) 03/12 COVID-19 Vaccine (2023- season) 2024 Hepatitis C Screen Completed 01/23/2022 Procedures Procedure Name Priority Date/Time Associated Diagnosis Comments HEPATITIS C AB W REFLEX TO HCV RNA BY PCR Routine 01/23/2022 8:24 EDT from Last 3 Months or Most Recently Relevant to Health Maintenance Results * HEPATITIS C AB W REFLEX TO HCV RNA BY PCR (01/23/2022 8:24 EDT) Hep C Antibody Negative Negative 01/24/2022 9:09 EDT [facility] Blood VENOUS BLOOD / Unknown 01/23/2022 8:24 EDT 01/23/2022 21:39 EDT us Provider Outr Resulting Lab CHEMISTRY & BLOOD GA S ORDERABLES Final Result [facility] [address] [place] [address] from Last 3 Months or Most Recently Relevant to Health Maintenance Insurance MEDICAID ACO [place] Care Teams Patient Observer Relationship Specialty Start Date End Date Alta Barreto NP [address] [place], [place] [id number] PCP - General 02/04/18
--- OUTSIDE RECORDS SUMMARY | 2024-11-01 09:04 | XMS_ITS | Encounter Summary ---
Author Organization [facility] Address [facility] [place] [address] Care Team Providers Care Boiler Repairman Name Role Phone Mariana Hoover GANESH Primary Care Provider [phone] Encounter Details Date Type Department Care Team (Latest Contact Info) Description 09/29/2020 1:59 PM EST - 09/29/2020 11:59 PM EST [place] [id number] Discharge Disposition: Home Social History Tobacco Use Types Packs/Day Years Used Date Smoking Tobacco: Never Assessed Sex and Gender Information Value Date Recorded Sex Assigned at Not on file Gender Identity Not on file Sexual Orientation Not on file documented as of this encounter Plan of Treatment Not on file documented as of this encounter Procedures Procedure Name Priority Date/Time Associated Diagnosis Comments COVID-19 PCR Routine 09/29/2020 10:24 AM EST documented in this encounter Results * COVID-19 PCR (09/29/2020 10:24 AM EST) SARS-CoV-2 RNA Not Detected Not Detected [facility] Comment: This result should be interpreted in combination with the clinical observations, patient history and epidemiological information in making a final diagnosis. For testing of asymptomatic individuals, assay performance characteristics and clinical utility have not been evaluated. Testing for SARS-CoV-2 (Severe acute respiratory syndrome coronavirus 2, formerly known as 2019 novel coronavirus or 2019-nCoV) to aid in the diagnosis of COVID-19 is performed using the [employer] RealTime SARS-CoV-2 Assay as authorized by the FDA Emergency Use Authorization (EUA). This EUA assay is intended for In-vitro Diagnostic (IVD) use with respiratory specimens such as nasopharyngeal swabs collected from individuals during the acute phase of infection. This assay is performed based on the instructions for use provided by [employer] and additional guidance provided by CDC and FDA. Testing is performed in the [facility] within the Department of Pathology and Laboratory Medicine at [facility], certified under the Clinical Laboratory Improvement Amendments of 1988 (CLIA), 42 U.S.C. 263a, to perform high complexity tests. Assay performance has been verified according to clinical laboratory regulatory requirements for use with specimens collected from individuals suspected of COVID-19. Test results are provided above. A result of ? Not Detected? indicates that the viral RNA target is not present above the limit of detection, but does not preclude SARS-CoV-2 infection. False negative results may occur if a specimen is improperly collected, transported or handled; if amplification inhibitors are present; or if inadequate numbers of viral particles are present in the specimen. When a diagnostic test is negative, the possibility of a false negative result should be considered in the context of a patient? s recent exposures and the presence of clinical signs and symptoms consistent with COVID-19. A result of ? Detected? indicates that RNA from SARS-CoV-2 was detected and the patient is infected. As required or requested by public health authorities, positive specimens may be sent for additional testing. Positive and negative predictive values for this test are highly dependent on disease prevalence. A result of ? Invalid? indicates that neither the viral RNA targets nor the internal control target was detected. An invalid result suggests the presence of inhibitors. Recollection and re-testing is recommended in the case of an invalid result. CDC COVID-19 criteria for testing on human specimens and clinical management guidance information are available at the CDC Coronavirus Disease 2019 (COVID-19) webpage under ? Information for Healthcare Professionals? (https://www.cdc.gov/coronavirus/2019-ncov/hcp/index.html) Additional information about this and other EUA tests can be found in provider and patient fact sheets at the following FDA website: https://www.fda.gov/medical-devices/shnvbgyuabp-xgokuch-9516-xzidh-99-kprejmmnx- use-a xfbzqhynkhvwy-nwewuzh-ntiwzso/gogmy-ridotgjpixe-jvhz SARS-CoV-2 RNA Source Nasal [facility] Specimen from nose (specimen) Other / Unknown 09/29/2020 10:24 AM EST 09/29/2020 11:19 PM EST Narrative Resulting Agency Comment Spec In Lab Orestes Portillo MD MOLECULAR ORDERABLES Performing Organization Address City/State/[facility] Co de Phone Number [facility] [place] [address] documented in this encounter Visit Diagnoses Not on filedocumented in this encounter Care Teams Boiler Repairman Relationship Specialty Start Date End Date Mariana Hoover, GANESH [facility] [address] [place] [address] PCP - General 09/25/10 documented as of this encounter
--- OUTSIDE RECORDS SUMMARY | 2024-11-01 09:04 | XMS_ITS | Referral Summary ---
Author Organization [facility] Address [address] [place] [address] Care Team Providers Care Tab Machine Operator Name Role Phone Alta Barreto MORTGAGE SERVICING SPECIALIST Primary Care Provider [phone] Social History Tobacco Use Types Packs/Day Years Used Date Smoking Tobacco: Never Assessed Interpersonal Safety Answer Date Record ed Physically Hurt Never 06/05/2020 Verbally Threaten Not on file 06/05/2020 Sex and Gender Information Value Date Recorded Sex Assigned at Not on file Legal Sex Male 16:59 EDT Gender Identity Not on file Sexual Orientation Not on file Plan of Treatment Not on file Procedures Procedure Name Priority Date/Time Associated Diagnosis Comments HEPATITIS C AB W REFLEX TO HCV RNA BY PCR Routine 01/23/2022 8:24 EDT from Last 3 Months or Most Recently Relevant to Health Maintenance Results * HEPATITIS C AB W REFLEX TO HCV RNA BY PCR (01/23/2022 8:24 EDT) Hep C Antibody Negative Negative 01/24/2022 9:09 EDT [facility] Blood VENOUS BLOOD / Unknown 01/23/2022 8:24 EDT 01/23/2022 21:39 EDT us Provider Outr Resulting Lab CHEMISTRY & BLOOD GA S ORDERABLES Final Result [facility] [address] [place] [address] from Last 3 Months or Most Recently Relevant to Health Maintenance Insurance MEDICAID ACO [place] Care Teams Tab Machine Operator Relationship Specialty Start Date End Date Alta Barreto NP [address] [place] [address] PCP - General 02/04/18
--- OUTSIDE RECORDS SUMMARY | 2024-11-01 09:04 | XMS_ITS | Encounter Summary ---
Author Organization [facility] Address [address] [place] [address] Care Team Providers Care Vacuum Cleaner Operator Name Role Phone Alta Barreto HARMONICA MAKER Primary Care Provider [phone] Encounter Details Date Type Department Care Team (Late st Contact Info) Description 01/23/2022 Lab Requisition [facility] Pathology & Laboratory Medicine - [facility] [address], [place] [address] Outr Resulting Lab, Provider Social History Tobacco [...] RNA BY PCR Routine 01/23/2022 8:24 EDT documented in this encounter Results * HEPATITIS C AB W REFLEX TO HCV RNA BY PCR (01/23/2022 8:24 EDT) Hep C Antibody Negative Negative 01/24/2022 9:09 EDT [facility] Blood VENOUS BLOOD / Unknown 01/23/2022 8:24 EDT 01/23/2022 21:39 EDT us Provider Outr Resulting Lab CHEMISTRY & BLOOD GA S ORDERABLES Final Result [facility] [address] [place] [address] documented in this encounter Visit Diagnoses Not on filedocumented in this encounter Care Teams Vacuum Cleaner Operator Relationship Specialty Start Date End Date Alta Barreto NP [address] [place] [address] PCP - General 02/04/18 documented as of this encounter
--- OUTSIDE RECORDS SUMMARY | 2024-11-01 09:04 | XMS_ITS | Clinical Summary ---
Author Organization [facility] [place] [address] Care Team Providers Care Classified Advertising Manager Name Role Phone Mariana Hoover APRN Primary Care Provider [phone] Social History Tobacco Use Types Packs/Day Years Used Date Smoking Tobacco: Never Assessed Sex and Gender Information Value Date Recorded Sex Assigned at Not on file Gender Identity Not on file Sexual Orientation Not on file Plan of Treatment Health Maintenance Due Date Last Done Comments CT Colonography 1965 Colonoscopy 1965 Colorectal Cancer Screening 1965 FIT DNA 1965 FIT 1965 Sigmoidoscopy (10 year) with FIT yearly 1965 Sigmoidoscopy 1965 HIV screen 1984 Hepatitis C Screening 1984 Lipid Screening 1984 Hepatitis B vaccine (0-59 yrs) (1) 1985 Tetanus/Diphtheria/Pertussis Vaccines (1 - Tdap) 03/12 Zoster vaccine (1 of 2) 2016 Advance Directive 2021 Covid-19 Vaccine (1 - 2023- season) 2024 Influenza (Flu) vaccine (1 o f 1 - Influenza standard series) 07/04/2024 Care Teams Classified Advertising Manager Relationship Specialty Start Date End Date Mariana Hoover APRN [facility] [address] [place] [address] PCP - General 09/25/10
--- OUTSIDE RECORDS SUMMARY | 2024-11-01 09:04 | XMS_ITS | Encounter Summary ---
Author Organization [facility] Address [address] [place] [address] Care Team Providers Care Professor/Nurse Anesthetist Name Role Phone Alta Barreto RUPINDER Primary Care Provider Encounter Details Date Type Department Care Team (Late st Contact Info) Description 11/21/2022 Lab Requisition [facility] Pathology & Laboratory Medicine - [facility] [address] [place], [place] [id number] Outr Resulting Lab, Provider Social History Tobacco [...] Associated Diagnosis Comments PSA TOTAL, DIAGNOSTIC Routine 11/20/2022 7:50 EST documented in this encounter Results * PSA TOTAL, DIAGNOSTIC (11/20/2022 7:50 EST) PSA 2.3 <=3.5 ng/mL 11/21/2022 18:22 EST [facility] Blood VENOUS BLOOD / Unknown 11/20/2022 7:50 EST 11/21/2022 17:29 EST Narrative [facility] - 11/21/2022 18:22 EST NOTE: Serum PSA concentration should not be interpreted as absolute evidence for the presence or absence of malignant disease. Assayed on Siemens ADVIA Centaur XPT using chemiluminescent technology.??Values obtained by using different assay methods cannot be used interchangeably. us Provider Outr Resulting Lab CHEMISTRY & BLOOD GA S ORDERABLES Final Result [facility] [address] [place] [address] documented in this encounter Visit Diagnoses Not on filedocumented in this encounter Care Teams Professor/Nurse Anesthetist Relationship Specialty Start Date End Date Alta Barreto NP [address] [place] [address] PCP - General 02/04/18 documented as of this encounter
[2024-11-01 16:14] LABS: ALT 40 U/L (16-63); AST 22 U/L (15-37); Albumin 3.7 g/dL (3.4-5.0); Alkaline Phosphatase 54 U/L (46-116); Anion Gap 11.2 mmol/L (3-11); BUN 25 mg/dL (7-18); Bilirubin, Total 1.42 mg/dL (0.2-1.0); CO2 25.8 mmol/L (21.0-32.0); CREATININE 0.9 mg/dL (0.70-1.30); Calcium 9.1 mg/dL (8.5-10.1); Calculated LDL 132 mg/dL (<100); Chloride 103 mmol/L (98-107); Cholesterol 189 mg/dL (<200); Glucose 89 mg/dL (74-106); HDL Cholesterol 41 mg/dL (40-60); Potassium 4.4 mmol/L (3.5-5.1); Sodium 140 mmol/L (136-145); Triglyceride 82 mg/dL (<150)
[2024-11-01 21:49] LABS: PSA, Screening 2.5 ng/mL (<=3.5)
== END 2024-11-01 09:00 | disposition home or self-care (01) ==
LOC: NCHCN 08:59
PROVIDERS: PCP Physician Assistant; Visit Provider Physician Assistant
DX: E78.5 Hyperlipidemia, unspecified (principal); R73.9 Hyperglycemia, unspecified; Z12.5 Encounter for screening for malignant neoplasm of prostate
CPT/HCPCS: 80053; 80061; 84153; 83036

== ENCOUNTER 2025-03-09 08:53 | Outpatient (CLI) | payer MEDICAID, SELFPAY ==
--- NOTE | 2025-03-09 08:29 | DI.RAD_ITS ---
Exam(s) XR SHOULDER LT COMPLETE 2+V EXAM: XR SHOULDER LT COMPLETE 2+V CLINICAL HISTORY: LEFT SHOULDER PAIN. TECHNIQUE: 2D digital imaging was performed. Three views. COMPARISON: CR RIGHT SHOULDER COMPLETE from 07/20/2017 FINDINGS: BONES: No acute fracture is present. There may be an old fracture fragment at the posterior border of the glenoid. No bony destructive lesion is seen. Degenerative changes at the greater tuberosity. JOINTS: No dislocation present. The glenohumeral joint space is maintained. There is mild spurring at the inferior portion of the joint. SOFT TISSUE: Normal small calcification seen near the greater tuberosity could indicate calcific tend inosis. Question additional calcification near the AC joint. IMPRESSION: Mild degenerative changes. Question of a calcification projecting near the AC joint. Calcification near humeral head could indicate calcific tendinosis. DATA REPOSITORY: RADIATION DOSE DELIVERED:
== END 2025-03-09 08:54 | disposition home or self-care (01) ==
LOC: DIORS 08:53
PROVIDERS: PCP Physician Assistant; Visit Provider Student in an Organized Health Care Education/Training Program
DX: M25.512 Pain in left shoulder (principal); M75.102 Unspecified rotator cuff tear or rupture of left shoulder, not specified as traumatic; S46.212A Strain of muscle, fascia and tendon of other parts of biceps, left arm, initial encounter
CPT/HCPCS: 73030

== ENCOUNTER 2025-04-07 02:09 | Outpatient (CLI) | payer MEDICAID, SELFPAY ==
--- NOTE | 2025-04-07 06:30 | DI.MRI_ITS ---
Exam(s) MR UPPER JOINT LT WO EXAM: MR UPPER JOINT LT WO CLINICAL HISTORY: EVAL BICEPS-PLEASE VISUALIZE PROX END OF BICEPS,lt rotator cuff tear,ruptur. TECHNIQUE: Multiplanar multisequence MRI was performed. COMPARISON: CR XR SHOULDER LT COMPLETE 2+V from 03/09/2025 FINDINGS: BONES: There is no fracture or contusion pattern. There is a small cyst in the greater tuberosity. JOINTS: Mild degenerative changes are seen at the acromioclavicular joint. There is superior subluxa tion of the humeral head relative to the glenoid. There is a joint effusion with extension into the subacromial subdeltoid bursa consistent with the supraspinatus tendon tear. TENDONS: Supraspinatus: There is a complete tear of the supraspinatus tendon with retraction to the level of t he acromioclavicular joint. Infraspinatus: There is tendinosis of the infraspinatus tendon. Subscapularis: There is tendinosis of the subscapularis tendon but no evidence of a tear. There are areas of hyperintense signal seen at the insertion site which may represent a partial intrasubstance tear. Teres Minor: Unremarkable. Biceps and Collbran: There is hyperintense signal seen in the long head of the biceps. There does not appear to be a complete tear but a partial tear should be considered. Underlying tendinosis should a lso be considered in this patient. MUSCLES: Very mild fatty atrophy of the supraspinatus and infraspinatus muscles. GLENOID LABRUM: There is blunting and abnormal signal seen in the posterior superior labrum suspiciou s for tear. SOFT TISSUES: Unremarkable. LIGAMENTS: Unremarkable. OTHER: There is fluid seen in the subacromial subdeltoid bursa consistent with the patient has full-t hickness supraspinatus tendon tear. IMPRESSION: 1. Complete tear of the supraspinatus tendon with retraction to the level of the acromioclavicular tanmay int. 2. Tendinosis of the biceps long head with hyperintense signal suggesting a partial tear. There does appear to be mild subluxation of the tendon. 3. Tendinosis of the subscapularis tendon with areas of hyperintense signal suggesting a partial tear at the insertion site. 4. Blunting and abnormal signal seen in the posterior superior labrum suspicious for tear. 5. Superior subluxation of the humeral head relative to the glenoid consistent with a rotator cuff te ar. 6. Very mild atrophy of the supraspinatus and infraspinatus muscles. 7. Mild degenerative changes seen at the acromioclavicular joint. DATA REPOSITORY:
== END 2025-04-07 02:29 ==
LOC: DI 02:10
PROVIDERS: PCP Physician Assistant; Visit Provider Student in an Organized Health Care Education/Training Program
DX: S46.212A Strain of muscle, fascia and tendon of other parts of biceps, left arm, initial encounter (principal); X58.XXXA Exposure to other specified factors, initial encounter
CPT/HCPCS: 73221